=== PATIENT | female | born 1990 | race African-American/Black ===

== ENCOUNTER 2020-04-23 14:46 | Inpatient (IN) | payer MEDICAID ==
[~2020-04-23] VITALS: Ht 172.7 cm; Wt 115.3 kg
[2020-04-23 15:00] VITALS: BP 113/70
--- NOTE | 2020-04-23 15:12 | Emergency Room Report ---
History of Present Illness General Chief Complaint: Toothache Source: Patient Present Illness HPI 30-year-old female with history of asthma currently controlled here complaining of 2 days of left-sided facial pain and swelling. Reports that the feeling on the left upper been more lower felt 2 weeks ago. Patient is scared of needles and has severe anxiety and does not want to go to dentist. Patient started seeing facial swelling 2 days ago, took Advil however did not subside. Is able to open mouth however with limited range of motion. Complains of tightness in the left side of face. Denies any tingling numbness. Denies any ear pain, fever and chills, sore throat. Speaks in full sentences. Reports that she is capable of swallowing. Denies any blurry vision. Denies any chest pain, shortness of breath, headache or dizziness. Denies any facial trauma. After seeing elevated liver enzymes patient complains of several months of intermittent sharp right upper quadrant abdominal pain reports that she drinks alcohol daily basis abuse. Denies any IV drug use. Denies recent travel, abdominal trauma. Denies nausea vomiting. Allergies: Coded Allergies: MORPHINE (Verified Allergy, Unknown, 04/23/20) COVID-19 Screening Contact w/high risk pt: No Experienced COVID-19 symptoms?: No COVID-19 Testing performed BREAST TRIMMER: No Patient History Past Medical History: see triage record Past Surgical History: none Pertinent Family History: none Last Menstrual Period: 04/09/20 Now: No Immunizations: UTD Reviewed Nursing Documentation: PMH: Agreed; PSxH: Agreed Nursing Documentation-PMH Past Medical History: No History, Except For Hx Asthma: Yes - bronchitis Review of Systems All Other Systems: negative except mentioned in HPI Physical Exam Vital Signs Date Time Temp Pulse Resp B/P (MAP) Pulse Ox O2 Delivery O2 Flow Rate FiO2 04/23/20 14:53 97.9 89 17 113/70 (84) 98 Room Air Sp02 EP Interpretation: reviewed, normal General Appearance: no apparent distress, alert, GCS 15, non-toxic Head: normocephalic, atraumatic Eyes: bilateral eye normal inspection, bilateral eye PERRL ENT: hearing grossly normal, normal pharynx, no angioedema, normal voice Neck: full range of motion, supple/symm/no masses Respiratory: chest non-tender, lungs clear, normal breath sounds, no rhonchi, no retraction, speaking full sentences Cardiovascular #1: regular rate, rhythm, no edema, no murmur Gastrointestinal: normal bowel sounds, non tender, soft, non-distended, no guarding, no rebound Rectal: deferred Genitourinary: no CVA tenderness Musculoskeletal: back normal, tender - Left frontal maxillary, swelling - Left maxilla and mandible Neurologic: alert, motor strength/tone normal, oriented x3, sensory intact, responsive, speech normal Psychiatric: judgement/insight normal, memory normal, mood/affect normal, no suicidal/homicidal ideation Skin: no rash Lymphatic: no adenopathy Medical Decision Making PA Attestation All diagnosis and treatment plans were discussed and reviewed by my supervising physician Dr. Castaneda Diagnostic Impression: Primary Impression: Elevated LFTs Additional Impression: Periodontal abscess ER Course 30-year-old female with history of asthma currently controlled here complaining of 2 days of left-sided facial pain and swelling. Reports that the feeling on the left upper been more lower felt 2 weeks ago. Patient is scared of needles and has severe anxiety and does not want to go to dentist. Patient started seeing facial swelling 2 days ago, took Advil however did not subside. Is able to open mouth however with limited range of motion. Complains of tightness in the left side of face. Denies any tingling numbness. Denies any ear pain, fever and chills, sore throat. Speaks in full sentences. Reports that she is capable of swallowing. Denies any blurry vision. Denies any chest pain, shortness of breath, headache or dizziness. Denies any facial trauma. After seeing elevated liver enzymes patient complains of several months of intermittent sharp right upper quadrant abdominal pain reports that she drinks alcohol daily basis abuse. Denies any IV drug use. Denies recent travel, abdominal trauma. Denies nausea vomiting. Ddx considered but are not limited to : Cellulitis, peritonsillar abscess, superficial infection, abscess Vital signs: are WNL, pt. is afebrile H&PE are most consistent with: periodontal abscess, elevated liver enzymes ORDERS: CBC, CMP, UA, urine test, CT facial bones with contrast ED INTERVENTIONS: Xanax. Patient is very anxious, reports that she did not take her Xanax today. Toradol, clindamycin Patient was admitted with diagnosis of. periodontal abscess, elevated liver enzymes to Dr. Partida under supervision of : Leonel pt stable at time of admission CT/MRI/US Diagnostic Results CT/MRI/US Diagnostic Results #1: Imaging Test Ordered: CT facial bones with contrast Impression FINDINGS: Bones/joints: Visualized calvarium is unremarkable. Zygomatic arches are unremarkable. No acute fracture. Soft tissues: There is soft tissue swelling and haziness anterior to the left submandibular gland presumably related to are dental etiology. Orbits: Unremarkable. Submandibular/parotid glands: Parotid glands are unremarkable. Submandible glands are unremarkable. Sinuses: Mild to moderate chronic left maxillary sinusitis. Dental: Best seen on axial series 6 image 25 coronal image 18, there is suggestion of a 0.7 x 0.5 x 0.9 cm probable periodontal abscess collection. IMPRESSION: There is significant soft tissue swelling and stranding within the 17 is tissues at the left submandibular region. Moreover, within the deep soft tissues adjacent to the teeth, there is suggestion of a probable periodontal abscess collection involving one of the molars. CT/MRI/US Diagnostic Results #2: Imaging Test Ordered: CT abd pelvis with contrast Impression FINDINGS: Limitations: Limited evaluation due to motion artifact. Lung bases: Minimal subsegmental atelectasis posteriorly. Minimal scarring within the lingular region. Heart: Heart is normal in size. ABDOMEN: Liver: Diffuse fatty infiltration of the liver is noted. The liver and the spleen enhance uniformly. Gallbladder and bile ducts: See below. Pancreas: See below. Spleen: See above. Adrenals: The adrenal glands, the head, body, tail of the pancreas, and the gallbladder are unremarkable. Kidneys and ureters: Both kidneys are shown to excrete contrast bilaterally. 0.5 cm probable simple cyst midpole region of the left kidney. No follow-up is advised. No hydronephrosis. Stomach and bowel: Moderate quantity of stool. No evidence of bowel obstruction. No mucosal thickening. PELVIS: Appendix: The appendix is seen on axial image 64 and is unremarkable. Bladder: Bladder is underdistended appeared Reproductive: Mildly distended endometrial cavity which is fluid-filled. ABDOMEN and PELVIS: Intraperitoneal space: Unremarkable. No free air. No significant fluid collection. Bones/joints: Mild osteoarthritic changes about the sacroiliac joints. Alignment of the thoracolumbar spine is unremarkable. The sacrum and coccyx are unremarkable. No acute fracture. Soft tissues: Ischiorectal fat is clean. Best seen on series 4 image 65 within the anterior aspect of the lower right rectus abdominous muscle at the midline there is a 0.6 and your hypodensity, possibly focal area of acute hemorrhage Vasculature: Flow is demonstrated within the celiac, SMA, the renal arteries, and KALEN. No abdominal aortic aneurysm. Lymph nodes: No retroperitoneal lymphadenopathy. Other findings: A 1.7 cm Alexus's duct cyst left pudendal region. A 0.6 cm Alexus's duct cyst right pudendal region. IMPRESSION: 1. Small hiatal hernia. 2. Probable distal esophagitis. 3. Fatty infiltration of the liver. 4. Gallbladder is unremarkable. 5. No renal calculus or hydronephrosis. 6. The appendix is unremarkable. 7. Moderate quantity of stool without bowel obstruction. 8. 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 9. Possible focal area of acute hemorrhage within the medial aspect of the right rectus abdominis muscle best seen on series 4 image 65. Clinical correlation is advised. Last Vital Signs Date Time Temp Pulse Resp B/P (MAP) Pulse Ox O2 Delivery O2 Flow Rate FiO2 04/23/20 14:53 97.9 89 17 113/70 (84) 98 Room Air Disposition: ADMITTED INPATIENT Condition: Serious SahelimoghaMars mueller Apr 23, 2020 15:12
[2020-04-23] MEDS ORDERED: ALPRAZolam 0.5mg tab ORAL ONE (15:15)
[2020-04-23] MEDS ORDERED: Omnipaque-300 100ml vial INJ PRN ×2 (15:15→16:15)
[2020-04-23] MEDS ORDERED: Ketorolac 30mg Inj IV ONE (15:15)
[2020-04-23 15:35] LABS: APPEARANCE,URINE CLOUDY; BILIRUBIN, URINE 2+ (NEGATIVE); GLUCOSE, URINE (UA) NEGATIVE (NEGATIVE); KETONES,URINE 3+ (NEGATIVE); LEUKOCYTE ESTERASE ,URINE 3+ (NEGATIVE); NITRITE,URINE NEGATIVE (NEGATIVE); PH,URINE 5 (4.5-8.0); PROTEIN,URINE 2+ (NEGATIVE); UROBILINOGEN,URINE 12 MG/DL (0.0-1.0)
[2020-04-23 15:38] LABS: COLOR,URINE YELLOW
[2020-04-23 15:42] LABS: BASOPHILS % (AUTO) 0.9 % (0.0-2.0); EOSINOPHILS % (AUTO) 4.2 % (0.0-3.0); HEMATOCRIT 40.3 % (37.0-47.0); HEMOGLOBIN 13.6 G/DL (12.0-16.0); LYMPHOCYTES % (AUTO) 13.3 % (20.0-45.0); MEAN CORPUSCULAR VOLUME 94 FL (80-99); MONOCYTES % (AUTO) 4.8 % (1.0-10.0); NEUTROPHILS % (AUTO) 76.8 % (45.0-75.0); PLATELET COUNT 230 K/UL (150-450); RED BLOOD COUNT 4.29 M/UL (4.20-5.40); RED CELL DISTRIBUTION WIDTH 14.9 % (11.6-14.8); WHITE BLOOD COUNT 8.4 K/UL (4.8-10.8)
[2020-04-23 15:46] LABS: ANION GAP 11 mmol/L (5-15); BLOOD UREA NITROGEN 12 mg/dL (7-18); CARBON DIOXIDE 27 MMOL/L (21-32); CHLORIDE 99 MMOL/L (98-107); CREATININE 1.1 MG/DL (0.55-1.30); POTASSIUM 3.6 MMOL/L (3.5-5.1); SODIUM 136 MMOL/L (136-145)
[2020-04-23 15:58] LABS: ALANINE AMINOTRANSFERASE 2265 U/L (12-78); ALBUMIN/GLOBULIN RATIO 0.9 (1.0-2.7); ALKALINE PHOSPHATASE 98 U/L (46-116); ASPARTATE AMINO TRANSFERASE 2499 U/L (15-37); BILIRUBIN,TOTAL 2.2 MG/DL (0.2-1.0)
[2020-04-23 16:00] LABS: BILIRUBIN,DIRECT 0.8 MG/DL (0.0-0.3)
--- NOTE | 2020-04-23 16:46 | Diagnostic Imaging Report ---
EXAM: CT Maxillofacial Without and With Intravenous Contrast CLINICAL HISTORY: ABSCESS TECHNIQUE: Axial computed tomography images of the face without and with intravenous contrast. CTDI is 158.7 mGy and DLP is 413.00 mGy-cm. One or more of the following dose reduction techniques were used: automated exposure control, adjustment of the mA and/or kV according to patient size, use of iterative reconstruction technique. COMPARISON: None. FINDINGS: Bones/joints: Visualized calvarium is unremarkable. Zygomatic arches are unremarkable. No acute fracture. Soft tissues: There is soft tissue swelling and haziness anterior to the left submandibular gland presumably related to are dental etiology. Orbits: Unremarkable. Submandibular/parotid glands: Parotid glands are unremarkable. Submandible glands are unremarkable. Sinuses: Mild to moderate chronic left maxillary sinusitis. Dental: Best seen on axial series 6 image 25 coronal image 18, there is suggestion of a 0.7 x 0.5 x 0.9 cm probable periodontal abscess collection. IMPRESSION: There is significant soft tissue swelling and stranding within the 17 is tissues at the left submandibular region. Moreover, within the deep soft tissues adjacent to the teeth, there is suggestion of a probable periodontal abscess collection involving one of the molars.
[2020-04-23 16:50] LABS: INR 1.2 (0.9-1.1)
--- NOTE | 2020-04-23 16:59 | Diagnostic Imaging Report ---
EXAM: CT Abdomen and Pelvis With Intravenous Contrast CLINICAL HISTORY: Abdominal pain. Abnormal liver enzyme values. TECHNIQUE: Axial computed tomography images of the abdomen and pelvis with intravenous contrast. CTDI is 13. mGy and DLP is 763.5 mGy-cm. One or more of the following dose reduction techniques were used: automated exposure control, adjustment of the mA and/or kV according to patient size, use of iterative reconstruction technique. COMPARISON: No previous studies. FINDINGS: Limitations: Limited evaluation due to motion artifact. Lung bases: Minimal subsegmental atelectasis posteriorly. Minimal scarring within the lingular region. Heart: Heart is normal in size. ABDOMEN: Liver: Diffuse fatty infiltration of the liver is noted. The liver and the spleen enhance uniformly. Gallbladder and bile ducts: See below. Pancreas: See below. Spleen: See above. Adrenals: The adrenal glands, the head, body, tail of the pancreas, and the gallbladder are unremarkable. Kidneys and ureters: Both kidneys are shown to excrete contrast bilaterally. 0.5 cm probable simple cyst midpole region of the left kidney. No follow-up is advised. No hydronephrosis. Stomach and bowel: Moderate quantity of stool. No evidence of bowel obstruction. No mucosal thickening. PELVIS: Appendix: The appendix is seen on axial image 64 and is unremarkable. Bladder: Bladder is underdistended appeared Reproductive: Mildly distended endometrial cavity which is fluid- filled. ABDOMEN and PELVIS: Intraperitoneal space: Unremarkable. No free air. No significant fluid collection. Bones/joints: Mild osteoarthritic changes about the sacroiliac joints. Alignment of the thoracolumbar spine is unremarkable. The sacrum and coccyx are unremarkable. No acute fracture. Soft tissues: Ischiorectal fat is clean. Best seen on series 4 image 65 within the anterior aspect of the lower right rectus abdominous muscle at the midline there is a 0.6 and your hypodensity, possibly focal area of acute hemorrhage Vasculature: Flow is demonstrated within the celiac, SMA, the renal arteries, and KALEN. No abdominal aortic aneurysm. Lymph nodes: No retroperitoneal lymphadenopathy. Other findings: A 1.7 cm Alexus's duct cyst left pudendal region. A 0.6 cm Alexus's duct cyst right pudendal region. IMPRESSION: 1. Small hiatal hernia. 2. Probable distal esophagitis. 3. Fatty infiltration of the liver. 4. Gallbladder is unremarkable. 5. No renal calculus or hydronephrosis. 6. The appendix is unremarkable. 7. Moderate quantity of stool without bowel obstruction. 8. 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 9. Possible focal area of acute hemorrhage within the medial aspect of the right rectus abdominis muscle best seen on series 4 image 65. Clinical correlation is advised. <MYCVCSECTION> Communications: 04/23/20 17:06 Call Doctor Regarding Above results, called Carlita LANE on 04/23 17:07 (-07:00)
[2020-04-23] MEDS ORDERED: Acetaminophen 650 MG SUPP RECTAL PRN (20:00)
[2020-04-23 20:26] VITALS: BP 105/69
[2020-04-23] MEDS ORDERED: HYDROmorphone 1mg/ml Carpuject IVP PRN (22:15)
[2020-04-24] VITALS: BP 126/80
[2020-04-24] MEDS ORDERED: Piperacillin/Tazobactam 3.375 GM in NS 110 ML IVPB SCH ×2
[2020-04-24 04:00] VITALS: BP 119/75
[2020-04-24 05:58] LABS: HEMOGLOBIN 12.8 G/DL (12.0-16.0); MEAN CORPUSCULAR VOLUME 93 FL (80-99); PLATELET COUNT 232 K/UL (150-450); RED CELL DISTRIBUTION WIDTH 13.9 % (11.6-14.8); WHITE BLOOD COUNT 8.9 K/UL (4.8-10.8)
[2020-04-24 06:03] LABS: INR 1.2 (0.9-1.1)
[2020-04-24 06:14] LABS: ALANINE AMINOTRANSFERASE 1738 U/L (12-78); ALBUMIN 3.1 G/DL (3.4-5.0); ALBUMIN/GLOBULIN RATIO 0.8 (1.0-2.7); ALKALINE PHOSPHATASE 98 U/L (46-116); AMYLASE 29 U/L (25-115); ANION GAP 7 mmol/L (5-15); ASPARTATE AMINO TRANSFERASE 1106 U/L (15-37); BILIRUBIN,DIRECT 0.5 MG/DL (0.0-0.3); BILIRUBIN,TOTAL 1.3 MG/DL (0.2-1.0); BLOOD UREA NITROGEN 8 mg/dL (7-18); CALCIUM 8.8 MG/DL (8.5-10.1); CARBON DIOXIDE 28 MMOL/L (21-32); CHLORIDE 100 MMOL/L (98-107); SODIUM 134 MMOL/L (136-145)
[2020-04-24] MEDS ORDERED: Tums 500mg ORAL PRN (07:30)
[2020-04-24 08:00] VITALS: BP 139/86
[2020-04-24] MEDS: Pantoprazole Inj IVP SCH ×2 (09:09→09:17)
[2020-04-24] MEDS ORDERED: LORazepam 1mg tab ORAL PRN (09:51)
[2020-04-24] MEDS ORDERED: Ampicillin/Sulbactam Sod 3 GM in NS 110 ML IVPB SCH (10:30)
[2020-04-24 12:00] VITALS: BP 109/69
--- NOTE | 2020-04-24 12:29 | History and Physical Report ---
DATE OF ADMISSION: 04/23/2020 TIME SEEN: 8 a.m. CONSULTANTS: 1. Lamin Louise MD. 2. Alfonzo Mclaughlin MD. 3. Johann Brown MD. CHIEF COMPLAINT: Left facial cellulitis, dental abscess, transaminitis. BRIEF HISTORY: The patient is a 30-year-old female, who lives at home, presented with above-mentioned diagnoses, currently calm in bed, no . No chest pain. No shortness of breath. No no nausea, vomiting, or diarrhea. PAST MEDICAL HISTORY: Asthma. PAST SURGICAL HISTORY: . MEDICATIONS: Metronidazole, pantoprazole, Zosyn, Zofran, hydromorphone, Tylenol, dexamethasone. ALLERGIES: Morphine. SOCIAL HISTORY: Positive smoke. Positive alcohol. Positive marijuana use. OBJECTIVE: GENERAL: Calm in bed, oriented x3, no acute distress. VITAL SIGNS: Temperature is 98 degrees, pulse 73, respiratory rate 16, blood pressure 119/75. CARDIOVASCULAR: No murmurs. LUNGS: Distant and clear. ABDOMEN: Bowel sound positive. Nontender. Nondistended. EXTREMITIES: No cyanosis, clubbing, or edema. SKIN: Left facial area slightly swollen, no increased warmth. NEUROLOGIC: The patient moves all extremities, slightly weak. LABORATORY AND DIAGNOSTIC DATA: Labs at this time show CBC is normal. BMP shows sodium 134, glucose 121. AST 1106, ALT 1738, albumin 3.1. Lipase 58. INR is 1.2. Urine tox positive benzo, cocaine, and marijuana. Urinalysis show 3+ leukocyte esterase. ASSESSMENT: 1. Left facial cellulitis. 2. Dental abscess. 3. UTI. 4. Elevated LFTs. 5. Alcohol abuse. 6. Drug abuse. PLAN: 1. Detox, dietary followup. 2. Antibiotics per Infectious Diseases. 3. Wound care. 4. IV fluids. 5. Pain control. 6. Dietary evaluation. 7. CBC and BMP in the morning. Esdras Partida D.O. DR: Grecia JOB#: [id number] CC:
--- NOTE | 2020-04-24 12:49 | Consultation ---
History of Present Illness General Date patient seen: Apr 24, 2020 Reason for Hospitalization: Toothache Present Illness HPI 30-year-old female with history of etoh and drug abuse presented with toothache for some time now and pain was noted to have abnormal labs. Reports that the feeling on the left upper been more lower felt 2 weeks ago. Patient is scared of needles and has severe anxiety and does not want to go to dentist. Patient started seeing facial swelling 2 days ago, took Advil however did not subside. Is able to open mouth however with limited range of motion. Complains of tightness in the left side of face. Denies any tingling numbness. Denies any ear pain, fever and chills, sore throat. Speaks in full sentences. Reports that she is capable of swallowing. Denies any blurry vision. Denies any chest pain, shortness of breath, headache or dizziness. Denies any facial trauma. After seeing elevated liver enzymes patient complains of several months of intermittent sharp right upper quadrant abdominal pain reports that she drinks alcohol daily basis abuse. States she has been taking advil and tylenol at home with alcohol heavy to improve pain. Allergies: Coded Allergies: MORPHINE (Verified Allergy, Unknown, 04/23/20) COVID-19 Screening Contact w/high risk pt: No Experienced COVID-19 symptoms?: No Patient History History Provided By: Patient, Medical Record, PMD Healthcare decision maker Resuscitation status Advanced Directive on File Past Medical/Surgical History Past Medical/Surgical History: (1) Periodontal abscess (2) Elevated LFTs Review of Systems Review of Symptoms General ROS: no weight loss or fever Psychological ROS: no depression or mood changes, no memory loss Ophthalmic ROS: no visual changes or eye irritation ENT ROS: no nasal congestion, hearing loss, dizziness Allergy and Immunology ROS: no allergic symptoms or urticaria Hematological and Lymphatic ROS: no swollen glands, unusual bleeding or bruising Endocrine ROS: no polyuria, polydipsia, weight changes, temperature intolerance Respiratory ROS: no cough, shortness of breath, or wheezing Cardiovascular ROS: no chest pain or dyspnea on exertion Gastrointestinal ROS: denies abdominal pain, bright red blood in stool. Musculoskeletal ROS: no myalgias or arthralgias Neurological ROS: no TIA or stroke symptoms Dermatological ROS: no new or changing skin lesions, rashes or pruritis Physical Exam Physical Exam General appearance: alert, cooperative, no distress, appears stated age Head: Normocephalic, without obvious abnormality, atraumatic Eyes: conjunctivae/corneas clear. PERRL, EOM's intact. Fundi benign Throat: Lips, mucosa, and tongue normal. left gum has historic scar. Neck: supple, symmetrical, trachea midline, no adenopathy, thyroid: not enlarged, symmetric, no tenderness/mass/nodules, no carotid bruit and no JVD Lungs: clear to auscultation bilaterally Heart: regular rate and rhythm, S1, S2 normal, no murmur, click, rub or gallop Abdomen: soft, non-tender. Bowel sounds normal. No masses, no organomegaly Extremities: extremities normal, atraumatic, no cyanosis or edema Pulses: 2+ and symmetric Skin: Skin color, texture, turgor normal. No rashes or lesions Neurologic: Grossly normal Last 24 Hour Vital Signs Date Time Temp Pulse Resp B/P (MAP) Pulse Ox O2 Delivery O2 Flow Rate FiO2 04/24/20 08:00 98.2 86 16 139/86 (103) 99 04/24/20 04:00 98.0 73 16 119/75 (90) 97 04/24/20 00:00 97.6 68 16 126/80 (95) 100 04/23/20 23:52 Room Air 04/23/20 20:45 98.8 75 16 105/69 96 Room Air 04/23/20 20:38 98.8 04/23/20 20:26 98.8 75 16 105/69 96 Room Air 04/23/20 15:53 97.8 04/23/20 15:00 97.9 17 113/70 98 Room Air 04/23/20 14:53 97.9 89 17 113/70 (84) 98 Room Air Intake and Output 04/23/20 04/24/20 19:00 07:00 Intake Total 1235.0 ml Balance 1235.0 ml Intake IV Total 1235.0 ml # Voids 1 Laboratory Tests Test 04/23/20 15:15 04/23/20 16:10 04/24/20 05:10 White Blood Count 8.4 K/UL (4.8-10.8) 8.9 K/UL (4.8-10.8) Red Blood Count 4.29 M/UL (4.20-5.40) 4.10 M/UL (4.20-5.40) L Hemoglobin 13.6 G/DL (12.0-16.0) 12.8 G/DL (12.0-16.0) Hematocrit 40.3 % (37.0-47.0) 38.0 % (37.0-47.0) Mean Corpuscular Volume 94 FL (80-99) 93 FL (80-99) Mean Corpuscular Hemoglobin 31.8 PG (27.0-31.0) H 31.1 PG (27.0-31.0) H Mean Corpuscular Hemoglobin Concent 33.8 G/DL (32.0-36.0) 33.6 G/DL (32.0-36.0) Red Cell Distribution Width 14.9 % (11.6-14.8) H 13.9 % (11.6-14.8) Platelet Count 230 K/UL (150-450) 232 K/UL (150-450) Mean Platelet Volume 9.0 FL (6.5-10.1) 8.7 FL (6.5-10.1) Neutrophils (%) (Auto) 76.8 % (45.0-75.0) H % (45.0-75.0) Lymphocytes (%) (Auto) 13.3 % (20.0-45.0) L % (20.0-45.0) Monocytes (%) (Auto) 4.8 % (1.0-10.0) % (1.0-10.0) Eosinophils (%) (Auto) 4.2 % (0.0-3.0) H % (0.0-3.0) Basophils (%) (Auto) 0.9 % (0.0-2.0) % (0.0-2.0) Prothrombin Time 13.1 SEC (9.30-11.50) H 12.8 SEC (9.30-11.50) H Prothromb Time International Ratio 1.2 (0.9-1.1) H 1.2 (0.9-1.1) H Activated Partial Thromboplast Time 29 SEC (23-33) 29 SEC (23-33) Urine Color Yellow Urine Appearance Cloudy Urine pH 5 (4.5-8.0) Urine Specific [place] 1.025 (1.005-1.035) Urine Protein 2+ (NEGATIVE) H Urine Glucose (UA) Negative (NEGATIVE) Urine Ketones 3+ (NEGATIVE) H Urine Blood 2+ (NEGATIVE) H Urine Nitrite Negative (NEGATIVE) Urine Bilirubin 2+ (NEGATIVE) H Urine Ictotest Negative (NEGATIVE) Urine Urobilinogen 12 MG/DL (0.0-1.0) H Urine Leukocyte Esterase 3+ (NEGATIVE) H Urine RBC 2-4 /HPF (0 - 2) H Urine WBC 15-20 /HPF (0 - 2) H Urine Squamous Epithelial Cells Many /LPF (NONE/OCC) H Urine Calcium Oxalate Crystals Many /LPF (NONE) Urine Amorphous Sediment Moderate /LPF (NONE) H Urine Bacteria Moderate /HPF (NONE) H Urine HCG, Qualitative Negative (NEGATIVE) Sodium Level 136 MMOL/L (136-145) 134 MMOL/L (136-145) L Potassium Level 3.6 MMOL/L (3.5-5.1) 4.0 MMOL/L (3.5-5.1) Chloride Level 99 MMOL/L (98-107) 100 MMOL/L (98-107) Carbon Dioxide Level 27 MMOL/L (21-32) 28 MMOL/L (21-32) Anion Gap 11 mmol/L (5-15) 7 mmol/L (5-15) Blood Urea Nitrogen 12 mg/dL (7-18) 8 mg/dL (7-18) Creatinine 1.1 MG/DL (0.55-1.30) 1.0 MG/DL (0.55-1.30) Estimat Glomerular Filtration Rate > 60 mL/min (>60) > 60 mL/min (>60) Glucose Level 101 MG/DL (74-106) 121 MG/DL (74-106) H Calcium Level 9.0 MG/DL (8.5-10.1) 8.8 MG/DL (8.5-10.1) Total Bilirubin 2.2 MG/DL (0.2-1.0) H 1.3 MG/DL (0.2-1.0) H Direct Bilirubin 0.8 MG/DL (0.0-0.3) H 0.5 MG/DL (0.0-0.3) H Aspartate Amino Transf (AST/SGOT) 2499 U/L (15-37) H 1106 U/L (15-37) H Alanine Aminotransferase (ALT/SGPT) 2265 U/L (12-78) H 1738 U/L (12-78) H Alkaline Phosphatase 98 U/L (46-116) 98 U/L (46-116) Total Protein 8.3 G/DL (6.4-8.2) H 7.1 G/DL (6.4-8.2) Albumin 4.0 G/DL (3.4-5.0) 3.1 G/DL (3.4-5.0) L Globulin 4.3 g/dL 4.0 g/dL Albumin/Globulin Ratio 0.9 (1.0-2.7) L 0.8 (1.0-2.7) L Lipase 69 U/L (73-393) L 58 U/L (73-393) L Urine Opiates Screen Negative (NEGATIVE) Acetaminophen Level < 2 MCG/ML (10-30) L Urine Barbiturates Screen Negative (NEGATIVE) Phencyclidine (PCP) Screen Negative (NEGATIVE) Urine Amphetamines Screen Negative (NEGATIVE) Urine Benzodiazepines Screen Positive (NEGATIVE) H Urine Cocaine Screen Positive (NEGATIVE) H Urine Marijuana (THC) Screen Positive (NEGATIVE) H Serum Alcohol < 3 mg/dL Hepatitis A IgM Antibody Pending Hepatitis B Surface Antigen Pending Hepatitis B Core IgM Antibody Pending Hepatitis C Antibody Pending Differential Total Cells Counted 100 Neutrophils % (Manual) 88 % (45-75) H Lymphocytes % (Manual) 9 % (20-45) L Monocytes % (Manual) 2 % (1-10) Eosinophils % (Manual) 0 % (0-3) Basophils % (Manual) 1 % (0-2) Band Neutrophils 0 % (0-8) Platelet Estimate Adequate Platelet Morphology Normal Red Blood Cell Morphology Normal Amylase Level 29 U/L (25-115) Hepatitis B Core Total Antibody Pending Microbiology Date/Time Source Procedure Growth Status 04/23/20 15:15 Urine,Clean Catch Urine Culture - Preliminary NO GROWTH Resulted Height (Feet): 5 Height (Inches): 8.00 Weight (Pounds): 240 Medications Current Medications Medications (Trade) Dose Ordered Sig/Britton Route PRN Reason Start Time Stop Time Status Last Admin Dose Admin Acetaminophen (Tylenol) 650 mg PRN PRN RECTAL Mild Pain (Pain Scale 1-3) 04/23/20 20:00 Ampicillin Sodium/ Sulbactam Sodium 3 gm/Sodium Chloride 110 ml @ 220 mls/hr Q6HR IVPB 04/24/20 10:30 05/01/20 10:29 Calcium Carbonate (Tums) 500 mg Q3H PRN ORAL Abdominal cramps 04/24/20 07:30 07/23/20 07:29 Fluoxetine HCl (PROzac) 20 mg DAILY ORAL 04/25/20 09:00 05/25/20 08:59 Fluoxetine HCl (PROzac) 20 mg ONCE ORAL 04/24/20 11:00 04/24/20 13:00 Hydromorphone HCl (Dilaudid) 1 mg Q4H PRN IVP For Pain 04/23/20 22:15 04/30/20 22:14 Ibuprofen (Motrin) 600 mg PRN PRN ORAL Mild Pain (Pain Scale 1-3) 04/23/20 20:00 Iohexol (OMNIPAQUE-300 100ml) NOW PRN INJ Radiology Procedure 04/23/20 15:15 04/25/20 15:02 Iohexol (OMNIPAQUE-300 100ml) 100 ml NOW PRN INJ Radiology Procedure 04/23/20 16:15 04/25/20 16:09 Lorazepam (Ativan) 2 mg Q6H PRN ORAL For Anxiety 04/24/20 09:51 05/01/20 09:50 Ondansetron HCl (Zofran) 4 mg Q4H PRN IVP Nausea & Vomiting 04/23/20 22:15 05/23/20 22:14 Pantoprazole (Protonix) 40 mg DAILY IVP 04/24/20 09:00 05/24/20 08:59 04/24/20 09:17 Sodium Chloride 1,000 ml @ 125 mls/hr Q8H IV 04/23/20 22:15 05/23/20 22:14 04/24/20 09:31 Assessment/Plan Problem List: (1) Periodontal abscess Assessment & Plan: small <1cm abx as per Id outpatient dental f/u Bones/joints: Visualized calvarium is unremarkable. Zygomatic arches are unremarkable. No acute fracture. Soft tissues: There is soft tissue swelling and haziness anterior to the left submandibular gland presumably related to are dental etiology. Orbits: Unremarkable. Submandibular/parotid glands: Parotid glands are unremarkable. Submandible glands are unremarkable. Sinuses: Mild to moderate chronic left maxillary sinusitis. Dental: Best seen on axial series 6 image 25 coronal image 18, there is suggestion of a 0.7 x 0.5 x 0.9 cm probable periodontal abscess collection. IMPRESSION: There is significant soft tissue swelling and stranding within the 17 is tissues at the left submandibular region. Moreover, within the deep soft tissues adjacent to the teeth, there is suggestion of a probable periodontal abscess collection involving one of the molars. ICD Codes: K05.219 - Aggressive periodontitis, localized, unspecified severity SNOMED: 42193308, 529275930 (2) Elevated LFTs Assessment & Plan: likely from Etoh abuse discussed cessation patient understands discussed medication use and adverse effects okay for diet trend labs ICD Codes: R79.89 - Other specified abnormal findings of blood chemistry SNOMED: 805609756, 536107879 (3) Hematoma of rectus sheath Assessment & Plan: denies trauma on exam not palpable given size will monitor trend h/h Liver: Diffuse fatty infiltration of the liver is noted. The liver and the spleen enhance uniformly. Gallbladder and bile ducts: See below. Pancreas: See below. Spleen: See above. Adrenals: The adrenal glands, the head, body, tail of the pancreas, and the gallbladder are unremarkable. Kidneys and ureters: Both kidneys are shown to excrete contrast bilaterally. 0.5 cm probable simple cyst midpole region of the left kidney. No follow-up is advised. No hydronephrosis. Stomach and bowel: Moderate quantity of stool. No evidence of bowel obstruction. No mucosal thickening. PELVIS: Appendix: The appendix is seen on axial image 64 and is unremarkable. Bladder: Bladder is underdistended appeared Reproductive: Mildly distended endometrial cavity which is fluid- filled. ABDOMEN and PELVIS: Intraperitoneal space: Unremarkable. No free air. No significant fluid collection. Bones/joints: Mild osteoarthritic changes about the sacroiliac joints. Alignment of the thoracolumbar spine is unremarkable. The sacrum and coccyx are unremarkable. No acute fracture. Soft tissues: Ischiorectal fat is clean. Best seen on series 4 image 65 within the anterior aspect of the lower right rectus abdominous muscle at the midline there is a 0.6 and your hypodensity, possibly focal area of acute hemorrhage Vasculature: Flow is demonstrated within the celiac, SMA, the renal arteries, and KALEN. No abdominal aortic aneurysm. Lymph nodes: No retroperitoneal lymphadenopathy. Other findings: A 1.7 cm Alexus's duct cyst left pudendal region. A 0.6 cm Alexus's duct cyst right pudendal region. IMPRESSION: 1. Small hiatal hernia. 2. Probable distal esophagitis. 3. Fatty infiltration of the liver. 4. Gallbladder is unremarkable. 5. No renal calculus or hydronephrosis. 6. The appendix is unremarkable. 7. Moderate quantity of stool without bowel obstruction. 8. 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 9. Possible focal area of acute hemorrhage within the medial aspect of the right rectus abdominis muscle best seen on series 4 image 65. ICD Codes: S30.1XXA - Contusion of abdominal wall, initial encounter SNOMED: 579975288 Alfonzo Mclaughlin Apr 24, 2020 12:49
[2020-04-24] MEDS: Ampicillin/Sulbactam Sod 3 GM in NS 110 ML IVPB SCH ×2 (13:19→18:55)
[2020-04-24] MEDS ORDERED: Tubing IV Secondary IV ONE (15:31)
[2020-04-24 16:00] VITALS: BP 110/71
[2020-04-24 20:00] VITALS: BP 107/63
[2020-04-25] VITALS: BP 105/57
[2020-04-25] MEDS: Ampicillin/Sulbactam Sod 3 GM in NS 110 ML IVPB SCH ×4 (00:12→18:19)
[2020-04-25 04:00] VITALS: BP 110/60
[2020-04-25 06:03] LABS: BASOPHILS % (AUTO) 0.5 % (0.0-2.0); EOSINOPHILS % (AUTO) 0.3 % (0.0-3.0); HEMATOCRIT 33.4 % (37.0-47.0); LYMPHOCYTES % (AUTO) 14.1 % (20.0-45.0); MEAN CORPUSCULAR VOLUME 93 FL (80-99); MONOCYTES % (AUTO) 6.6 % (1.0-10.0); NEUTROPHILS % (AUTO) 78.4 % (45.0-75.0); PLATELET COUNT 211 K/UL (150-450); RED BLOOD COUNT 3.59 M/UL (4.20-5.40); RED CELL DISTRIBUTION WIDTH 14.6 % (11.6-14.8); WHITE BLOOD COUNT 8.7 K/UL (4.8-10.8)
[2020-04-25 06:05] LABS: INR 1.1 (0.9-1.1)
[2020-04-25 06:08] LABS: BLOOD UREA NITROGEN 3 mg/dL (7-18); CALCIUM 8.2 MG/DL (8.5-10.1); CARBON DIOXIDE 28 MMOL/L (21-32); CHLORIDE 104 MMOL/L (98-107); POTASSIUM 3.6 MMOL/L (3.5-5.1); SODIUM 136 MMOL/L (136-145)
[2020-04-25 08:00] VITALS: BP 113/67
--- NOTE | 2020-04-25 08:40 | General Progress Note ---
Assessment/Plan Problem List: (1) UTI (urinary tract infection) ICD Codes: N39.0 - Urinary tract infection, site not specified SNOMED: 23286706 (2) Facial cellulitis ICD Codes: L03.211 - Cellulitis of face SNOMED: 982938233 (3) Periodontal abscess ICD Codes: K05.219 - Aggressive periodontitis, localized, unspecified severity SNOMED: 02813000, 826911069 (4) Elevated LFTs ICD Codes: R79.89 - Other specified abnormal findings of blood chemistry SNOMED: 255866746, 986710550 Status: stable, progressing Assessment/Plan: diet abx pain control cbc bmp am Subjective Constitutional: Reports: weakness Allergies: Coded Allergies: MORPHINE (Verified Allergy, Unknown, 04/23/20) All Systems: reviewed and negative except above Subjective calm in bed Objective Last 24 Hour Vital Signs Date Time Temp Pulse Resp B/P (MAP) Pulse Ox O2 Delivery O2 Flow Rate FiO2 04/25/20 04:00 97.9 66 20 110/60 (77) 95 04/25/20 00:00 98.2 62 18 105/57 (73) 95 04/24/20 20:34 Room Air 04/24/20 20:00 97.4 70 18 107/63 (78) 97 04/24/20 16:00 97.8 64 16 110/71 (84) 97 04/24/20 12:00 98.0 79 16 109/69 (82) 98 04/24/20 09:00 Room Air Intake and Output 04/24/20 04/25/20 19:00 07:00 Intake Total 1600 ml 1960 ml Balance 1600 ml 1960 ml Intake Oral 600 ml 710 ml IV Total 1000 ml 1250 ml # Voids 2 2 Laboratory Tests 04/25/20 05:10: White Blood Count 8.7, Red Blood Count 3.59L, Hemoglobin 11.0L, Hematocrit 33.4L , Mean Corpuscular Volume 93, Mean Corpuscular Hemoglobin 30.6, Mean Corpuscular Hemoglobin Concent 32.9, Red Cell Distribution Width 14.6, Platelet Count 211, Mean Platelet Volume 8.4, Neutrophils (%) (Auto) 78.4H, Lymphocytes ( %) (Auto) 14.1L, Monocytes (%) (Auto) 6.6, Eosinophils (%) (Auto) 0.3, Basophils (%) (Auto) 0.5, Prothrombin Time 11.9H, Prothromb Time International Ratio 1.1, Activated Partial Thromboplast Time 28, Sodium Level 136, Potassium Level 3.6, Chloride Level 104, Carbon Dioxide Level 28, Blood Urea Nitrogen 3L, Creatinine 1.0, Estimat Glomerular Filtration Rate > 60, Glucose Level 129H, Calcium Level 8.2L Height (Feet): 5 Height (Inches): 8.00 Weight (Pounds): 240 General Appearance: alert EENT: normal ENT inspection Neck: normal alignment Cardiovascular: normal peripheral pulses, normal rate, regular rhythm Respiratory/Chest: chest wall non-tender, lungs clear, normal breath sounds Abdomen: normal bowel sounds, non tender, soft Extremities: normal inspection Edema: no edema noted Arm (L), no edema noted Arm (R), no edema noted Leg (L), no edema noted Leg (R), no edema noted Pedal (L), no edema noted Pedal (R), no edema noted Generalized Neurologic: responsive, motor weakness Skin: normal pigmentation, warm/dry Objective sl left facial swelling Esdras Partida DO Apr 25, 2020 08:40
[2020-04-25] MEDS: Pantoprazole Inj IVP SCH (08:41)
--- NOTE | 2020-04-25 08:41 | Consultation ---
History of Present Illness General Date patient seen: Apr 25, 2020 Time patient seen: 08:30 - am Chief Complaint: Back pain Referring physician: Gilma Reason for Consultation: Pain Management Present Illness HPI This is a 30 y/o female admitted under the care of Dr. Partida due to elevated LFTs. She has c/o chronic LBP for the past 5 years which is off/on rating it a 6 /10 and radiates to b/l LE. We were consulted so patient would have adequate pain control while here in the hospital. Has been started on Dilaudid 0.5mg IV Q4H PRN which as allowed her to tolerate the pain. Allergies: Coded Allergies: MORPHINE (Verified Allergy, Unknown, 04/23/20) Medication History Medications Narrative MEDICATIONS: Metronidazole, pantoprazole, Zosyn, Zofran, hydromorphone, Tylenol, dexamethasone. SOCIAL HISTORY: Positive smoke. Positive alcohol. Positive marijuana use. Patient History Healthcare decision maker Resuscitation status Advanced Directive on File Patient History Narrative PAST MEDICAL HISTORY: Asthma. PAST SURGICAL HISTORY: . Past Medical/Surgical History Past Medical/Surgical History: (1) Periodontal abscess (2) UTI (urinary tract infection) Social History Social History: (1) Cocaine abuse Review of Systems ROS Narrative General ROS: no weight loss or fever Psychological ROS: no depression or mood changes, no memory loss Ophthalmic ROS: no visual changes or eye irritation ENT ROS: no nasal congestion, hearing loss, dizziness Allergy and Immunology ROS: no allergic symptoms or urticaria Hematological and Lymphatic ROS: no swollen glands, unusual bleeding or bruising Endocrine ROS: no polyuria, polydipsia, weight changes, temperature intolerance Respiratory ROS: no cough, shortness of breath, or wheezing Cardiovascular ROS: no chest pain or dyspnea on exertion Gastrointestinal ROS: denies abdominal pain, bright red blood in stool. Musculoskeletal ROS: no myalgias or arthralgias Neurological ROS: no TIA or stroke symptoms Dermatological ROS: no new or changing skin lesions, rashes or pruritis Physical Exam Physical Exam Narrative General appearance: alert, cooperative, no distress, appears stated age Head: Normocephalic, without obvious abnormality, atraumatic Eyes: conjunctivae/corneas clear. PERRL, EOM's intact. Fundi benign Throat: Lips, mucosa, and tongue normal. left gum has historic scar. Neck: supple, symmetrical, trachea midline, no adenopathy, thyroid: not enlarged, symmetric, no tenderness/mass/nodules, no carotid bruit and no JVD Lungs: clear to auscultation bilaterally Heart: regular rate and rhythm, S1, S2 normal, no murmur, click, rub or gallop Abdomen: soft, non-tender. Bowel sounds normal. No masses, no organomegaly Extremities: extremities normal, atraumatic, no cyanosis or edema Pulses: 2+ and symmetric Skin: Skin color, texture, turgor normal. No rashes or lesions Neurologic: Grossly normal Last 24 Hour Vital Signs Date Time Temp Pulse Resp B/P (MAP) Pulse Ox O2 Delivery O2 Flow Rate FiO2 04/25/20 08:00 98.3 70 18 113/67 (82) 99 04/25/20 04:00 97.9 66 20 110/60 (77) 95 04/25/20 00:00 98.2 62 18 105/57 (73) 95 04/24/20 20:34 Room Air 04/24/20 20:00 97.4 70 18 107/63 (78) 97 04/24/20 16:00 97.8 64 16 110/71 (84) 97 04/24/20 12:00 98.0 79 16 109/69 (82) 98 04/24/20 09:00 Room Air Intake and Output 04/24/20 04/25/20 19:00 07:00 Intake Total 1600 ml 1960 ml Balance 1600 ml 1960 ml Intake Oral 600 ml 710 ml IV Total 1000 ml 1250 ml # Voids 2 2 Laboratory Tests Test 04/25/20 05:10 White Blood Count 8.7 K/UL (4.8-10.8) Red Blood Count 3.59 M/UL (4.20-5.40) L Hemoglobin 11.0 G/DL (12.0-16.0) L Hematocrit 33.4 % (37.0-47.0) L Mean Corpuscular Volume 93 FL (80-99) Mean Corpuscular Hemoglobin 30.6 PG (27.0-31.0) Mean Corpuscular Hemoglobin Concent 32.9 G/DL (32.0-36.0) Red Cell Distribution Width 14.6 % (11.6-14.8) Platelet Count 211 K/UL (150-450) Mean Platelet Volume 8.4 FL (6.5-10.1) Neutrophils (%) (Auto) 78.4 % (45.0-75.0) H Lymphocytes (%) (Auto) 14.1 % (20.0-45.0) L Monocytes (%) (Auto) 6.6 % (1.0-10.0) Eosinophils (%) (Auto) 0.3 % (0.0-3.0) Basophils (%) (Auto) 0.5 % (0.0-2.0) Prothrombin Time 11.9 SEC (9.30-11.50) H Prothromb Time International Ratio 1.1 (0.9-1.1) Activated Partial Thromboplast Time 28 SEC (23-33) Sodium Level 136 MMOL/L (136-145) Potassium Level 3.6 MMOL/L (3.5-5.1) Chloride Level 104 MMOL/L (98-107) Carbon Dioxide Level 28 MMOL/L (21-32) Blood Urea Nitrogen 3 mg/dL (7-18) L Creatinine 1.0 MG/DL (0.55-1.30) Estimat Glomerular Filtration Rate > 60 mL/min (>60) Glucose Level 129 MG/DL (74-106) H Calcium Level 8.2 MG/DL (8.5-10.1) L Height (Feet): 5 Height (Inches): 8.00 Weight (Pounds): 240 Medications Current Medications Medications (Trade) Dose Ordered Sig/Britton Route PRN Reason Start Time Stop Time Status Last Admin Dose Admin Acetaminophen (Tylenol) 650 mg PRN PRN RECTAL Mild Pain (Pain Scale 1-3) 04/23/20 20:00 Ampicillin Sodium/ Sulbactam Sodium 3 gm/Sodium Chloride 110 ml @ 220 mls/hr Q6H IVPB 04/24/20 13:00 05/01/20 12:59 04/25/20 06:00 Calcium Carbonate (Tums) 500 mg Q3H PRN ORAL Abdominal cramps 04/24/20 07:30 07/23/20 07:29 Fluoxetine HCl (PROzac) 20 mg DAILY ORAL 04/25/20 09:00 05/25/20 08:59 Hydromorphone HCl (Dilaudid) 0.5 mg Q4H PRN IVP For Pain 04/25/20 08:34 05/02/20 08:33 Iohexol (OMNIPAQUE-300 100ml) NOW PRN INJ Radiology Procedure 04/23/20 15:15 04/25/20 15:02 Iohexol (OMNIPAQUE-300 100ml) 100 ml NOW PRN INJ Radiology Procedure 04/23/20 16:15 04/25/20 16:09 Lorazepam (Ativan) 2 mg Q6H PRN ORAL For Anxiety 04/24/20 09:51 05/01/20 09:50 Ondansetron HCl (Zofran) 4 mg Q4H PRN IVP Nausea & Vomiting 04/23/20 22:15 05/23/20 22:14 Pantoprazole (Protonix) 40 mg DAILY IVP 04/24/20 09:00 05/24/20 08:59 04/24/20 09:17 Sodium Chloride 1,000 ml @ 125 mls/hr Q8H IV 04/23/20 22:15 05/23/20 22:14 04/25/20 02:48 Assessment/Plan Assessment/Plan: (1) Lumbar DDD (2) Lumbar Spondylosis (3) Lumbar Radiculopathy Patient to be continued on Dilaudid as needed D/w Dr. Bailon and he concurred. Chris Caicedo Apr 25, 2020 08:41
[2020-04-25] MEDS: Hydromorphone 0.5mg/0.5ml inj IVP PRN ×2 (08:42→17:22)
--- NOTE | 2020-04-25 10:05 | General Progress Note ---
Assessment/Plan Problem List: (1) Cocaine abuse ICD Codes: F14.10 - Cocaine abuse, uncomplicated SNOMED: 42673965 (2) Facial cellulitis ICD Codes: L03.211 - Cellulitis of face SNOMED: 079267166 (3) Elevated LFTs ICD Codes: R79.89 - Other specified abnormal findings of blood chemistry SNOMED: 362929035, 189271041 Status: stable, progressing Assessment/Plan: fu LFTS hepatitis panel on oral diet pain control will fu Subjective ROS Limited/Unobtainable: Yes Allergies: Coded Allergies: MORPHINE (Verified Allergy, Unknown, 04/23/20) Objective Last 24 Hour Vital Signs Date Time Temp Pulse Resp B/P (MAP) Pulse Ox O2 Delivery O2 Flow Rate FiO2 04/25/20 09:00 Room Air 04/25/20 08:00 98.3 70 18 113/67 (82) 99 04/25/20 04:00 97.9 66 20 110/60 (77) 95 04/25/20 00:00 98.2 62 18 105/57 (73) 95 04/24/20 20:34 Room Air 04/24/20 20:00 97.4 70 18 107/63 (78) 97 04/24/20 16:00 97.8 64 16 110/71 (84) 97 04/24/20 12:00 98.0 79 16 109/69 (82) 98 Intake and Output 04/24/20 04/25/20 19:00 07:00 Intake Total 1600 ml 2085 ml Balance 1600 ml 2085 ml Intake Oral 600 ml 710 ml IV Total 1000 ml 1375 ml # Voids 2 2 Laboratory Tests 04/25/20 05:10: White Blood Count 8.7, Red Blood Count 3.59L, Hemoglobin 11.0L, Hematocrit 33.4L , Mean Corpuscular Volume 93, Mean Corpuscular Hemoglobin 30.6, Mean Corpuscular Hemoglobin Concent 32.9, Red Cell Distribution Width 14.6, Platelet Count 211, Mean Platelet Volume 8.4, Neutrophils (%) (Auto) 78.4H, Lymphocytes ( %) (Auto) 14.1L, Monocytes (%) (Auto) 6.6, Eosinophils (%) (Auto) 0.3, Basophils (%) (Auto) 0.5, Prothrombin Time 11.9H, Prothromb Time International Ratio 1.1, Activated Partial Thromboplast Time 28, Sodium Level 136, Potassium Level 3.6, Chloride Level 104, Carbon Dioxide Level 28, Blood Urea Nitrogen 3L, Creatinine 1.0, Estimat Glomerular Filtration Rate > 60, Glucose Level 129H, Calcium Level 8.2L Height (Feet): 5 Height (Inches): 8.00 Weight (Pounds): 240 General Appearance: no apparent distress EENT: normal ENT inspection Neck: supple Cardiovascular: normal rate Respiratory/Chest: decreased breath sounds Abdomen: soft, hypoactive bowel sounds, tender Extremities: non-tender Lamin Louise MD Apr 25, 2020 10:05
[2020-04-25] MEDS ORDERED: Hydromorphone 0.5mg/0.5ml inj IVP PRN (10:15)
[2020-04-25 12:00] VITALS: BP 104/69
--- NOTE | 2020-04-25 12:45 | Surgery Progress Note ---
Surgery Progress Note Subjective Additional Comments still with pain no n/v labs noted rectus hematoma clinically stable acute hepatic insufficiency ongoing eval Objective Last 24 Hour Vital Signs Date Time Temp Pulse Resp B/P (MAP) Pulse Ox O2 Delivery O2 Flow Rate FiO2 04/25/20 12:00 97.4 63 18 104/69 (81) 97 04/25/20 09:00 Room Air 04/25/20 08:00 98.3 70 18 113/67 (82) 99 04/25/20 04:00 97.9 66 20 110/60 (77) 95 04/25/20 00:00 98.2 62 18 105/57 (73) 95 04/24/20 20:34 Room Air 04/24/20 20:00 97.4 70 18 107/63 (78) 97 04/24/20 16:00 97.8 64 16 110/71 (84) 97 I&O Intake and Output 04/24/20 04/25/20 19:00 07:00 Intake Total 1600 ml 2085 ml Balance 1600 ml 2085 ml Intake Oral 600 ml 710 ml IV Total 1000 ml 1375 ml # Voids 2 2 Cardiovascular: RSR Respiratory: clear Abdomen: soft, tenderness, present bowel sounds, non-distended Extremities: no edema, no tenderness, no cyanosis Laboratory Tests Test 04/25/20 05:10 White Blood Count 8.7 K/UL (4.8-10.8) Red Blood Count 3.59 M/UL (4.20-5.40) L Hemoglobin 11.0 G/DL (12.0-16.0) L Hematocrit 33.4 % (37.0-47.0) L Mean Corpuscular Volume 93 FL (80-99) Mean Corpuscular Hemoglobin 30.6 PG (27.0-31.0) Mean Corpuscular Hemoglobin Concent 32.9 G/DL (32.0-36.0) Red Cell Distribution Width 14.6 % (11.6-14.8) Platelet Count 211 K/UL (150-450) Mean Platelet Volume 8.4 FL (6.5-10.1) Neutrophils (%) (Auto) 78.4 % (45.0-75.0) H Lymphocytes (%) (Auto) 14.1 % (20.0-45.0) L Monocytes (%) (Auto) 6.6 % (1.0-10.0) Eosinophils (%) (Auto) 0.3 % (0.0-3.0) Basophils (%) (Auto) 0.5 % (0.0-2.0) Prothrombin Time 11.9 SEC (9.30-11.50) H Prothromb Time International Ratio 1.1 (0.9-1.1) Activated Partial Thromboplast Time 28 SEC (23-33) Sodium Level 136 MMOL/L (136-145) Potassium Level 3.6 MMOL/L (3.5-5.1) Chloride Level 104 MMOL/L (98-107) Carbon Dioxide Level 28 MMOL/L (21-32) Blood Urea Nitrogen 3 mg/dL (7-18) L Creatinine 1.0 MG/DL (0.55-1.30) Estimat Glomerular Filtration Rate > 60 mL/min (>60) Glucose Level 129 MG/DL (74-106) H Calcium Level 8.2 MG/DL (8.5-10.1) L Plan Problems: (1) Periodontal abscess Assessment & Plan: small <1cm abx as per Id outpatient dental f/u Bones/joints: Visualized calvarium is unremarkable. Zygomatic arches are unremarkable. No acute fracture. Soft tissues: There is soft tissue swelling and haziness anterior to the left submandibular gland presumably related to are dental etiology. Orbits: Unremarkable. Submandibular/parotid glands: Parotid glands are unremarkable. Submandible glands are unremarkable. Sinuses: Mild to moderate chronic left maxillary sinusitis. Dental: Best seen on axial series 6 image 25 coronal image 18, there is suggestion of a 0.7 x 0.5 x 0.9 cm probable periodontal abscess collection. IMPRESSION: There is significant soft tissue swelling and stranding within the 17 is tissues at the left submandibular region. Moreover, within the deep soft tissues adjacent to the teeth, there is suggestion of a probable periodontal abscess collection involving one of the molars. (2) Elevated LFTs Assessment & Plan: likely from Etoh abuse discussed cessation patient understands discussed medication use and adverse effects okay for diet trend labs improving (3) Hematoma of rectus sheath Assessment & Plan: denies trauma on exam not palpable given size will monitor trend h/h clinically stable monitor h/h Liver: Diffuse fatty infiltration of the liver is noted. The liver and the spleen enhance uniformly. Gallbladder and bile ducts: See below. Pancreas: See below. Spleen: See above. Adrenals: The adrenal glands, the head, body, tail of the pancreas, and the gallbladder are unremarkable. Kidneys and ureters: Both kidneys are shown to excrete contrast bilaterally. 0.5 cm probable simple cyst midpole region of the left kidney. No follow-up is advised. No hydronephrosis. Stomach and bowel: Moderate quantity of stool. No evidence of bowel obstruction. No mucosal thickening. PELVIS: Appendix: The appendix is seen on axial image 64 and is unremarkable. Bladder: Bladder is underdistended appeared Reproductive: Mildly distended endometrial cavity which is fluid- filled. ABDOMEN and PELVIS: Intraperitoneal space: Unremarkable. No free air. No significant fluid collection. Bones/joints: Mild osteoarthritic changes about the sacroiliac joints. Alignment of the thoracolumbar spine is unremarkable. The sacrum and coccyx are unremarkable. No acute fracture. Soft tissues: Ischiorectal fat is clean. Best seen on series 4 image 65 within the anterior aspect of the lower right rectus abdominous muscle at the midline there is a 0.6 and your hypodensity, possibly focal area of acute hemorrhage Vasculature: Flow is demonstrated within the celiac, SMA, the renal arteries, and KALEN. No abdominal aortic aneurysm. Lymph nodes: No retroperitoneal lymphadenopathy. Other findings: A 1.7 cm Alexus's duct cyst left pudendal region. A 0.6 cm Alexus's duct cyst right pudendal region. IMPRESSION: 1. Small hiatal hernia. 2. Probable distal esophagitis. 3. Fatty infiltration of the liver. 4. Gallbladder is unremarkable. 5. No renal calculus or hydronephrosis. 6. The appendix is unremarkable. 7. Moderate quantity of stool without bowel obstruction. 8. 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 9. Possible focal area of acute hemorrhage within the medial aspect of the right rectus abdominis muscle best seen on series 4 image 65. Alfonzo Mclaughlin Apr 25, 2020 12:45
--- NOTE | 2020-04-25 13:22 | Consultation ---
History of Present Illness General Date patient seen: Apr 25, 2020 Chief Complaint: Toothache Present Illness HPI 30 y/o F with hx of ETOH and drug abuse, asthma, presented to ED on with 2 weeks of toothache (L upper side) and 2 days of facial swelling; has not seen a dentist because he is scared of needles. Has limited range of motion opening mouth. Upon admission, patient was noted to have elevated LFTs. Also complained of intermittent RUQ. Denied tingling, numbness, ear pain, f/c, sore throat, blurry vision, CP, SOB, CARLSON, dizziness, facial trauma, n/v/d Allergies: Coded Allergies: MORPHINE (Verified Allergy, Unknown, 04/23/20) Patient History Healthcare decision maker Resuscitation status Advanced Directive on File Patient History Narrative Pmhx: as above Shx: rinks alcohol daily basis abuse. Denies any IV drug use. Positive smoke. . Positive marijuana use. Fhx: non contributory Review of Systems All Other Systems: negative except mentioned in HPI Physical Exam Physical Exam Narrative GENERAL: Calm in bed, oriented x3, no acute distress. CARDIOVASCULAR: No murmurs. LUNGS: Distant and clear. ABDOMEN: Bowel sound positive. Nontender. Nondistended. EXTREMITIES: No cyanosis, clubbing, or edema. SKIN: Left facial area slightly swollen, no increased warmth. NEUROLOGIC: The patient moves all extremities, slightly weak. Last 24 Hour Vital Signs Date Time Temp Pulse Resp B/P (MAP) Pulse Ox O2 Delivery O2 Flow Rate FiO2 04/25/20 12:00 97.4 63 18 104/69 (81) 97 04/25/20 09:00 Room Air 04/25/20 08:00 98.3 70 18 113/67 (82) 99 04/25/20 04:00 97.9 66 20 110/60 (77) 95 04/25/20 00:00 98.2 62 18 105/57 (73) 95 04/24/20 20:34 Room Air 04/24/20 20:00 97.4 70 18 107/63 (78) 97 04/24/20 16:00 97.8 64 16 110/71 (84) 97 Intake and Output 04/24/20 04/25/20 19:00 07:00 Intake Total 1600 ml 2085 ml Balance 1600 ml 2085 ml Intake Oral 600 ml 710 ml IV Total 1000 ml 1375 ml # Voids 2 2 Laboratory Tests Test 04/25/20 05:10 White Blood Count 8.7 K/UL (4.8-10.8) Red Blood Count 3.59 M/UL (4.20-5.40) L Hemoglobin 11.0 G/DL (12.0-16.0) L Hematocrit 33.4 % (37.0-47.0) L Mean Corpuscular Volume 93 FL (80-99) Mean Corpuscular Hemoglobin 30.6 PG (27.0-31.0) Mean Corpuscular Hemoglobin Concent 32.9 G/DL (32.0-36.0) Red Cell Distribution Width 14.6 % (11.6-14.8) Platelet Count 211 K/UL (150-450) Mean Platelet Volume 8.4 FL (6.5-10.1) Neutrophils (%) (Auto) 78.4 % (45.0-75.0) H Lymphocytes (%) (Auto) 14.1 % (20.0-45.0) L Monocytes (%) (Auto) 6.6 % (1.0-10.0) Eosinophils (%) (Auto) 0.3 % (0.0-3.0) Basophils (%) (Auto) 0.5 % (0.0-2.0) Prothrombin Time 11.9 SEC (9.30-11.50) H Prothromb Time International Ratio 1.1 (0.9-1.1) Activated Partial Thromboplast Time 28 SEC (23-33) Sodium Level 136 MMOL/L (136-145) Potassium Level 3.6 MMOL/L (3.5-5.1) Chloride Level 104 MMOL/L (98-107) Carbon Dioxide Level 28 MMOL/L (21-32) Blood Urea Nitrogen 3 mg/dL (7-18) L Creatinine 1.0 MG/DL (0.55-1.30) Estimat Glomerular Filtration Rate > 60 mL/min (>60) Glucose Level 129 MG/DL (74-106) H Calcium Level 8.2 MG/DL (8.5-10.1) L Height (Feet): 5 Height (Inches): 8.00 Weight (Pounds): 240 Medications Current Medications Medications (Trade) Dose Ordered Sig/Britton Route PRN Reason Start Time Stop Time Status Last Admin Dose Admin Acetaminophen (Tylenol) 650 mg PRN PRN RECTAL Mild Pain (Pain Scale 1-3) 04/23/20 20:00 Ampicillin Sodium/ Sulbactam Sodium 3 gm/Sodium Chloride 110 ml @ 220 mls/hr Q6H IVPB 04/24/20 13:00 05/01/20 12:59 04/25/20 06:00 Calcium Carbonate (Tums) 500 mg Q3H PRN ORAL Abdominal cramps 04/24/20 07:30 07/23/20 07:29 Docusate Sodium (Colace) 100 mg TWICE A DAY ORAL 04/25/20 18:00 05/25/20 17:59 Fluoxetine HCl (PROzac) 20 mg DAILY ORAL 04/25/20 09:00 05/25/20 08:59 Hydromorphone HCl (Dilaudid) 0.5 mg Q4H PRN IVP For Pain 04/25/20 08:34 05/02/20 08:33 04/25/20 08:42 Iohexol (OMNIPAQUE-300 100ml) NOW PRN INJ Radiology Procedure 04/23/20 15:15 04/25/20 15:02 Iohexol (OMNIPAQUE-300 100ml) 100 ml NOW PRN INJ Radiology Procedure 04/23/20 16:15 04/25/20 16:09 Lorazepam (Ativan) 2 mg Q6H PRN ORAL For Anxiety 04/24/20 09:51 05/01/20 09:50 Ondansetron HCl (Zofran) 4 mg Q4H PRN IVP Nausea & Vomiting 04/23/20 22:15 05/23/20 22:14 Pantoprazole (Protonix) 40 mg DAILY IVP 04/24/20 09:00 05/24/20 08:59 04/25/20 08:41 Polyethylene Glycol (Miralax) 17 gm BEDTIME ORAL 04/25/20 21:00 05/25/20 20:59 Sodium Chloride 1,000 ml @ 125 mls/hr Q8H IV 04/23/20 22:15 05/23/20 22:14 04/25/20 02:48 Assessment/Plan Assessment/Plan: Abx: Unasyn 04/24- Flagyl x1 04/24 Zosyn x1 04/24 Clindamycin x1 04/23 Assessment: L facial cellulitis - from dental origin> Probable periodontal abscess -CT face: There is significant soft tissue swelling and stranding within the 17 is tissues at the left submandibular region. Moreover, within the deep soft tissues adjacent to the teeth, there is suggestion of a probable periodontal abscess collection involving one of the molars. Afebrile NO leukocytosis -04/23 u/a wbc 15-20, nit neg, leuk +3; ucx 70-80 mixed gram positive organisms Abd pain (intermittent)- ?acute hemorrhage Rectus abdominis muscle Significant elevation LFTs (up to 2k); now improving - r/o toxic (drug related) vs viral hepatitis -acetaminophen, ETOH levels not detected -acute hep panel p -CT abd/p w/: . Small hiatal hernia. Probable distal esophagitis. Fatty infiltration of the liver. Gallbladder is unremarkable. No renal calculus or hydronephrosis. The appendix is unremarkable. Moderate quantity of stool without bowel obstruction. 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 Possible focal area of acute hemorrhage within the medial aspect of the right rectus abdominis muscle best seen on series 4 image 65. Sharda vaginitis UDS + cocaine, THC, benzo ETOH and drug abuse asthma Plan: -Continue Unasyn #2 (abx d #3) -Fluconazole 150mg PO x1 -f/u cx -Monitor CBC/CMP, temperatures -GI, Gen sx f/u -f/u acute hep panel -HIV ab screen, CMV, VZV, EBV panel Thank you for this consultation. Will continue to follow along with you. Discussed with Belkis Joaquin M.D. Apr 25, 2020 13:22
[2020-04-25 16:00] VITALS: BP 97/57
[2020-04-25] MEDS: Docusate 100mg cap ORAL SCH (17:22)
[2020-04-25 20:00] VITALS: BP 113/68
[2020-04-25] MEDS ORDERED: Fluconazole 150mg tab ORAL SCH (20:00)
[2020-04-25] MEDS ORDERED: Miralax 17gm pkt ORAL SCH (21:00)
--- NOTE | 2020-04-25 23:30 | Initial Psychiatric Evaluation ---
Psychiatry Consultation Psychiatry Consultation Chief Complaint: Toothache Allergies: Coded Allergies: MORPHINE (Verified Allergy, Unknown, 04/23/20) Objective Data Height (Feet): 5 Height (Inches): 8.00 Weight (Pounds): 240 Ramses Martinez MD Apr 25, 2020 23:30
[2020-04-26] VITALS: BP 106/59
[2020-04-26] MEDS: Ampicillin/Sulbactam Sod 3 GM in NS 110 ML IVPB SCH ×3 (00:32→14:03)
[2020-04-26 04:00] VITALS: BP 110/61
[2020-04-26 06:11] LABS: EOSINOPHILS % (AUTO) 1.5 % (0.0-3.0); HEMATOCRIT 33.9 % (37.0-47.0); LYMPHOCYTES % (AUTO) 34.7 % (20.0-45.0); MEAN CORPUSCULAR VOLUME 95 FL (80-99); NEUTROPHILS % (AUTO) 53.8 % (45.0-75.0); PLATELET COUNT 190 K/UL (150-450); RED BLOOD COUNT 3.58 M/UL (4.20-5.40); RED CELL DISTRIBUTION WIDTH 15.1 % (11.6-14.8); WHITE BLOOD COUNT 6.1 K/UL (4.8-10.8)
--- NOTE | 2020-04-26 06:24 | General Progress Note ---
Assessment/Plan Problem List: (1) Cocaine abuse ICD Codes: F14.10 - Cocaine abuse, uncomplicated SNOMED: 73442607 (2) Facial cellulitis ICD Codes: L03.211 - Cellulitis of face SNOMED: 959117061 (3) Elevated LFTs ICD Codes: R79.89 - Other specified abnormal findings of blood chemistry SNOMED: 098520845, 767713888 Status: stable, progressing Assessment/Plan: fu LFTS hepatitis panel pending viral serology pending on oral diet pain control repeat labs will fu Subjective Allergies: Coded Allergies: MORPHINE (Verified Allergy, Unknown, 04/23/20) Objective Last 24 Hour Vital Signs Date Time Temp Pulse Resp B/P (MAP) Pulse Ox O2 Delivery O2 Flow Rate FiO2 04/26/20 04:00 97.9 65 18 110/61 (77) 96 04/26/20 00:00 98.3 62 18 106/59 (75) 97 04/25/20 20:54 Room Air 04/25/20 20:00 98.3 63 16 113/68 (83) 97 04/25/20 16:00 98.2 67 16 97/57 (70) 98 04/25/20 12:00 97.4 63 18 104/69 (81) 97 04/25/20 09:00 Room Air 04/25/20 08:00 98.3 70 18 113/67 (82) 99 Intake and Output 04/25/20 04/26/20 19:00 07:00 Intake Total 2270 ml 1725 ml Balance 2270 ml 1725 ml Intake Oral 800 ml 600 ml IV Total 1470 ml 1125 ml # Voids 2 2 Laboratory Tests 04/25/20 13:50: Chlamydia trachomatis RNA [Pending], Neisseria gonorrhoeae RNA [Pending] 04/26/20 04:50: White Blood Count [Pending], Red Blood Count [Pending], Hemoglobin [Pending], Hematocrit [Pending], Mean Corpuscular Volume [Pending], Mean Corpuscular Hemoglobin [Pending], Mean Corpuscular Hemoglobin Concent [Pending], Red Cell Distribution Width [Pending], Platelet Count [Pending], Mean Platelet Volume [ Pending], Neutrophils (%) (Auto) [Pending], Lymphocytes (%) (Auto) [Pending], Monocytes (%) (Auto) [Pending], Eosinophils (%) (Auto) [Pending], Basophils (%) (Auto) [Pending], Sodium Level [Pending], Potassium Level [Pending], Chloride Level [Pending], Carbon Dioxide Level [Pending], Blood Urea Nitrogen [Pending], Creatinine [Pending], Estimat Glomerular Filtration Rate [Pending], Glucose Level [Pending], Calcium Level [Pending], Total Bilirubin [Pending], Aspartate Amino Transf (AST/SGOT) [Pending], Alanine Aminotransferase (ALT/SGPT) [Pending] , Alkaline Phosphatase [Pending], Total Protein [Pending], Albumin [Pending], Globulin [Pending], Amylase Level [Pending], Lipase [Pending], Rapid Plasma Reagin [Pending], Hemanth-Ruiz Virus Capsid Ag IgG Ab [Pending], Hemanth-Ruiz Virus Capsid Ag IgM Ab [Pending], EBV Early Ag Ab (Restrict +Diffuse) [Pending] , Hemanth-Ruiz Virus Nuclear Ag Ab [Pending], Hepatitis A IgM Antibody [Pending] , Hepatitis B Surface Antigen [Pending], Hepatitis B Core IgM Antibody [Pending] , Hepatitis C Antibody [Pending], HIV-1 RNA (PCR) log10 Value [Pending], HIV-1 RNA Ultraquantitative (PCR) [Pending], HIV (1&2) Antibody Rapid [Pending], Varicella-Zoster IgM Antibody [Pending] Height (Feet): 5 Height (Inches): 8.00 Weight (Pounds): 254 General Appearance: alert EENT: normal ENT inspection Neck: supple Cardiovascular: normal rate Respiratory/Chest: decreased breath sounds Abdomen: soft, hypoactive bowel sounds Extremities: non-tender Lamin Louise MD Apr 26, 2020 06:24
[2020-04-26 06:51] LABS: ALANINE AMINOTRANSFERASE 669 U/L (12-78); ALBUMIN 2.5 G/DL (3.4-5.0); ALBUMIN/GLOBULIN RATIO 0.7 (1.0-2.7); ALKALINE PHOSPHATASE 97 U/L (46-116); ANION GAP 7 mmol/L (5-15); ASPARTATE AMINO TRANSFERASE 104 U/L (15-37); BILIRUBIN,TOTAL 0.5 MG/DL (0.2-1.0); BLOOD UREA NITROGEN 8 mg/dL (7-18); CALCIUM 8.6 MG/DL (8.5-10.1); CARBON DIOXIDE 27 MMOL/L (21-32); CHLORIDE 103 MMOL/L (98-107); POTASSIUM 3.9 MMOL/L (3.5-5.1); SODIUM 137 MMOL/L (136-145)
[2020-04-26 07:25] LABS: AMYLASE 31 U/L (25-115)
[2020-04-26 08:00] VITALS: BP 123/78
--- NOTE | 2020-04-26 08:45 | General Progress Note ---
Assessment/Plan Assessment/Plan: (1) Lumbar DDD (2) Lumbar Spondylosis (3) Lumbar Radiculopathy Patient to be continued on Dilaudid as needed D/w Dr. Bailon and he concurred. Subjective Date patient seen: Apr 26, 2020 Time patient seen: 08:00 - am Allergies: Coded Allergies: MORPHINE (Verified Allergy, Unknown, 04/23/20) Subjective General ROS: no weight loss or fever Psychological ROS: no depression or mood changes, no memory loss Ophthalmic ROS: no visual changes or eye irritation ENT ROS: no nasal congestion, hearing loss, dizziness Allergy and Immunology ROS: no allergic symptoms or urticaria Hematological and Lymphatic ROS: no swollen glands, unusual bleeding or bruising Endocrine ROS: no polyuria, polydipsia, weight changes, temperature intolerance Respiratory ROS: no cough, shortness of breath, or wheezing Cardiovascular ROS: no chest pain or dyspnea on exertion Gastrointestinal ROS: denies abdominal pain, bright red blood in stool. Musculoskeletal ROS: no myalgias or arthralgias Neurological ROS: no TIA or stroke symptoms Dermatological ROS: no new or changing skin lesions, rashes or pruritis SUBJECTIVE: In bed no signs of pain or distress. Pain has been at a moderate level and tolerated on the Dilaudid. No new complaints at this time Objective Last 24 Hour Vital Signs Date Time Temp Pulse Resp B/P (MAP) Pulse Ox O2 Delivery O2 Flow Rate FiO2 04/26/20 08:00 97.9 59 18 123/78 (93) 99 04/26/20 04:00 97.9 65 18 110/61 (77) 96 04/26/20 00:00 98.3 62 18 106/59 (75) 97 04/25/20 20:54 Room Air 04/25/20 20:00 98.3 63 16 113/68 (83) 97 04/25/20 16:00 98.2 67 16 97/57 (70) 98 04/25/20 12:00 97.4 63 18 104/69 (81) 97 04/25/20 09:00 Room Air Intake and Output 04/25/20 04/26/20 19:00 07:00 Intake Total 2270 ml 1850 ml Balance 2270 ml 1850 ml Intake Oral 800 ml 600 ml IV Total 1470 ml 1250 ml # Voids 2 2 Laboratory Tests 04/25/20 13:50: Chlamydia trachomatis RNA [Pending], Neisseria gonorrhoeae RNA [Pending] 04/26/20 04:50: White Blood Count 6.1, Red Blood Count 3.58L, Hemoglobin 11.0L, Hematocrit 33.9L , Mean Corpuscular Volume 95, Mean Corpuscular Hemoglobin 30.6, Mean Corpuscular Hemoglobin Concent 32.3, Red Cell Distribution Width 15.1H, Platelet Count 190, Mean Platelet Volume 8.4, Neutrophils (%) (Auto) 53.8, Lymphocytes (%) (Auto) 34.7, Monocytes (%) (Auto) 9.0, Eosinophils (%) (Auto) 1.5, Basophils (%) (Auto) 1.0, Sodium Level 137, Potassium Level 3.9, Chloride Level 103, Carbon Dioxide Level 27, Anion Gap 7, Blood Urea Nitrogen 8, Creatinine 1.0, Estimat Glomerular Filtration Rate > 60, Glucose Level 88, Calcium Level 8.6, Total Bilirubin 0.5, Aspartate Amino Transf (AST/SGOT) 104H, Alanine Aminotransferase (ALT/SGPT) 669H, Alkaline Phosphatase 97, Total Protein 6.2L, Albumin 2.5L, Globulin 3.7, Albumin/Globulin Ratio 0.7L, Amylase Level 31, Lipase 116, Rapid Plasma Reagin [Pending], Hemanth-Ruiz Virus Capsid Ag IgG Ab [Pending], Hemanth-Ruiz Virus Capsid Ag IgM Ab [Pending], EBV Early Ag Ab (Restrict +Diffuse) [Pending], Hemanth-Ruiz Virus Nuclear Ag Ab [Pending] , Hepatitis A IgM Antibody [Pending], Hepatitis B Surface Antigen [Pending], Hepatitis B Core IgM Antibody [Pending], Hepatitis C Antibody [Pending], HIV-1 RNA (PCR) log10 Value [Pending], HIV-1 RNA Ultraquantitative (PCR) [Pending], HIV (1&2) Antibody Rapid Negative, Varicella-Zoster IgM Antibody [Pending] Height (Feet): 5 Height (Inches): 8.00 Weight (Pounds): 254 Objective General appearance: alert, cooperative, no distress, appears stated age Head: Normocephalic, without obvious abnormality, atraumatic Eyes: conjunctivae/corneas clear. PERRL, EOM's intact. Fundi benign Throat: Lips, mucosa, and tongue normal. left gum has historic scar. Neck: supple, symmetrical, trachea midline, no adenopathy, thyroid: not enlarged, symmetric, no tenderness/mass/nodules, no carotid bruit and no JVD Lungs: clear to auscultation bilaterally Heart: regular rate and rhythm, S1, S2 normal, no murmur, click, rub or gallop Abdomen: soft, non-tender. Bowel sounds normal. No masses, no organomegaly Extremities: extremities normal, atraumatic, no cyanosis or edema Pulses: 2+ and symmetric Skin: Skin color, texture, turgor normal. No rashes or lesions Neurologic: Grossly normal Chris Caicedo Apr 26, 2020 08:45
[2020-04-26] MEDS: Docusate 100mg cap ORAL SCH (09:13)
[2020-04-26] MEDS: Pantoprazole Inj IVP SCH (09:13)
[2020-04-26] MEDS: Hydromorphone 0.5mg/0.5ml inj IVP PRN (11:15)
[2020-04-26 12:00] VITALS: BP 118/81
--- NOTE | 2020-04-26 13:30 | General Progress Note ---
Assessment/Plan Problem List: (1) UTI (urinary tract infection) ICD Codes: N39.0 - Urinary tract infection, site not specified SNOMED: 87421002 (2) Facial cellulitis ICD Codes: L03.211 - Cellulitis of face SNOMED: 175600100 (3) Periodontal abscess ICD Codes: K05.219 - Aggressive periodontitis, localized, unspecified severity SNOMED: 00068105, 400645487 (4) Elevated LFTs ICD Codes: R79.89 - Other specified abnormal findings of blood chemistry SNOMED: 059507167, 428852058 Status: stable, progressing Assessment/Plan: diet abx pain control cbc bmp am dc if clear Subjective Constitutional: Reports: weakness Allergies: Coded Allergies: MORPHINE (Verified Allergy, Unknown, 04/23/20) All Systems: reviewed and negative except above Subjective calm in bed Objective Last 24 Hour Vital Signs Date Time Temp Pulse Resp B/P (MAP) Pulse Ox O2 Delivery O2 Flow Rate FiO2 04/26/20 12:00 97.5 63 20 118/81 (93) 99 04/26/20 11:45 97.9 04/26/20 09:00 Room Air 04/26/20 08:00 97.9 59 18 123/78 (93) 99 04/26/20 04:00 97.9 65 18 110/61 (77) 96 04/26/20 00:00 98.3 62 18 106/59 (75) 97 04/25/20 20:54 Room Air 04/25/20 20:00 98.3 63 16 113/68 (83) 97 04/25/20 16:00 98.2 67 16 97/57 (70) 98 Intake and Output 04/25/20 04/26/20 19:00 07:00 Intake Total 2270 ml 1850 ml Balance 2270 ml 1850 ml Intake Oral 800 ml 600 ml IV Total 1470 ml 1250 ml # Voids 2 2 Laboratory Tests 04/25/20 13:50: Chlamydia trachomatis RNA [Pending], Neisseria gonorrhoeae RNA [Pending] 04/26/20 04:50: White Blood Count 6.1, Red Blood Count 3.58L, Hemoglobin 11.0L, Hematocrit 33.9L , Mean Corpuscular Volume 95, Mean Corpuscular Hemoglobin 30.6, Mean Corpuscular Hemoglobin Concent 32.3, Red Cell Distribution Width 15.1H, Platelet Count 190, Mean Platelet Volume 8.4, Neutrophils (%) (Auto) 53.8, Lymphocytes (%) (Auto) 34.7, Monocytes (%) (Auto) 9.0, Eosinophils (%) (Auto) 1.5, Basophils (%) (Auto) 1.0, Sodium Level 137, Potassium Level 3.9, Chloride Level 103, Carbon Dioxide Level 27, Anion Gap 7, Blood Urea Nitrogen 8, Creatinine 1.0, Estimat Glomerular Filtration Rate > 60, Glucose Level 88, Calcium Level 8.6, Total Bilirubin 0.5, Aspartate Amino Transf (AST/SGOT) 104H, Alanine Aminotransferase (ALT/SGPT) 669H, Alkaline Phosphatase 97, Total Protein 6.2L, Albumin 2.5L, Globulin 3.7, Albumin/Globulin Ratio 0.7L, Amylase Level 31, Lipase 116, Rapid Plasma Reagin [Pending], Hemanth-Ruiz Virus Capsid Ag IgG Ab [Pending], Hemanth-Ruiz Virus Capsid Ag IgM Ab [Pending], EBV Early Ag Ab (Restrict +Diffuse) [Pending], Hemanth-Ruiz Virus Nuclear Ag Ab [Pending] , Hepatitis A IgM Antibody [Pending], Hepatitis B Surface Antigen [Pending], Hepatitis B Core IgM Antibody [Pending], Hepatitis C Antibody [Pending], HIV-1 RNA (PCR) log10 Value [Pending], HIV-1 RNA Ultraquantitative (PCR) [Pending], HIV (1&2) Antibody Rapid Negative, Varicella-Zoster IgM Antibody [Pending] Height (Feet): 5 Height (Inches): 8.00 Weight (Pounds): 254 General Appearance: alert EENT: normal ENT inspection Neck: normal alignment Cardiovascular: normal peripheral pulses, normal rate, regular rhythm Respiratory/Chest: chest wall non-tender, lungs clear, normal breath sounds Abdomen: normal bowel sounds, non tender, soft Extremities: normal inspection Edema: no edema noted Arm (L), no edema noted Arm (R), no edema noted Leg (L), no edema noted Leg (R), no edema noted Pedal (L), no edema noted Pedal (R), no edema noted Generalized Neurologic: motor weakness Skin: normal pigmentation, warm/dry Objective sl left facial swelling Esdras Partida DO Apr 26, 2020 13:30
[2020-04-26] MEDS ORDERED: VENTOLIN HFA18 GM INH (13:45)
--- NOTE | 2020-04-26 14:22 | Infectious Diseases Prog Note ---
Assessment/Plan Assessment: L facial cellulitis - from dental origin> Probable periodontal abscess -CT face: There is significant soft tissue swelling and stranding within the 17 is tissues at the left submandibular region. Moreover, within the deep soft tissues adjacent to the teeth, there is suggestion of a probable periodontal abscess collection involving one of the molars. Afebrile NO leukocytosis -04/23 u/a wbc 15-20, nit neg, leuk +3; ucx 70-80 mixed gram positive organisms Abd pain (intermittent)- ?acute hemorrhage Rectus abdominis muscle Significant elevation LFTs (up to 2k); now improving - likely toxic (drug related) - r/o viral hepatitis -acetaminophen, ETOH levels not detected -acute hep panel neg, HIV ab screen neg -CT abd/p w/: . Small hiatal hernia. Probable distal esophagitis. Fatty infiltration of the liver. Gallbladder is unremarkable. No renal calculus or hydronephrosis. The appendix is unremarkable. Moderate quantity of stool without bowel obstruction. 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 Possible focal area of acute hemorrhage within the medial aspect of the right rectus abdominis muscle best seen on series 4 image 65. Sharda vaginitis UDS + cocaine, THC, benzo ETOH and drug abuse asthma Plan: -Continue Unasyn #3 (abx d #/) -upon discharge, can be transition to PO Augmentin 875/125mg PO Bid -04/25 SP Fluconazole 150mg PO x1 -04/24 SP Flagyl x1, ZOsyn x1 -04/23 SP Clindamycin x1 -f/u cx -Monitor CBC/CMP, temperatures -GI, Gen sx f/u -f/u CMV, VZV, EBV panel, RPR, GC/Cl -GI f/u Thank you for this consultation. Will continue to follow along with you. Discussed with RN. Subjective Allergies: Coded Allergies: MORPHINE (Verified Allergy, Unknown, 04/23/20) afebrile LFTs improving rapidly no leukocytosis Objective Last 24 Hour Vital Signs Date Time Temp Pulse Resp B/P (MAP) Pulse Ox O2 Delivery O2 Flow Rate FiO2 04/26/20 12:00 97.5 63 20 118/81 (93) 99 04/26/20 11:45 97.9 04/26/20 09:00 Room Air 04/26/20 08:00 97.9 59 18 123/78 (93) 99 04/26/20 04:00 97.9 65 18 110/61 (77) 96 04/26/20 00:00 98.3 62 18 106/59 (75) 97 04/25/20 20:54 Room Air 04/25/20 20:00 98.3 63 16 113/68 (83) 97 04/25/20 16:00 98.2 67 16 97/57 (70) 98 Height (Feet): 5 Height (Inches): 8.00 Weight (Pounds): 254 GENERAL: Calm in bed, oriented x3, no acute distress. CARDIOVASCULAR: No murmurs. LUNGS: Distant and clear. ABDOMEN: Bowel sound positive. Nontender. Nondistended. EXTREMITIES: No cyanosis, clubbing, or edema. SKIN: Left facial area slightly swollen, no increased warmth. NEUROLOGIC: The patient moves all extremities, slightly weak. Microbiology Date/Time Source Procedure Growth Status 04/23/20 15:15 Urine,Clean Catch Urine Culture - Final Mixed Urogenital Contaminants Complete Laboratory Tests Test 04/26/20 04:50 White Blood Count 6.1 K/UL (4.8-10.8) Red Blood Count 3.58 M/UL (4.20-5.40) L Hemoglobin 11.0 G/DL (12.0-16.0) L Hematocrit 33.9 % (37.0-47.0) L Mean Corpuscular Volume 95 FL (80-99) Mean Corpuscular Hemoglobin 30.6 PG (27.0-31.0) Mean Corpuscular Hemoglobin Concent 32.3 G/DL (32.0-36.0) Red Cell Distribution Width 15.1 % (11.6-14.8) H Platelet Count 190 K/UL (150-450) Mean Platelet Volume 8.4 FL (6.5-10.1) Neutrophils (%) (Auto) 53.8 % (45.0-75.0) Lymphocytes (%) (Auto) 34.7 % (20.0-45.0) Monocytes (%) (Auto) 9.0 % (1.0-10.0) Eosinophils (%) (Auto) 1.5 % (0.0-3.0) Basophils (%) (Auto) 1.0 % (0.0-2.0) Sodium Level 137 MMOL/L (136-145) Potassium Level 3.9 MMOL/L (3.5-5.1) Chloride Level 103 MMOL/L (98-107) Carbon Dioxide Level 27 MMOL/L (21-32) Anion Gap 7 mmol/L (5-15) Blood Urea Nitrogen 8 mg/dL (7-18) Creatinine 1.0 MG/DL (0.55-1.30) Estimat Glomerular Filtration Rate > 60 mL/min (>60) Glucose Level 88 MG/DL (74-106) Calcium Level 8.6 MG/DL (8.5-10.1) Total Bilirubin 0.5 MG/DL (0.2-1.0) Aspartate Amino Transf (AST/SGOT) 104 U/L (15-37) H Alanine Aminotransferase (ALT/SGPT) 669 U/L (12-78) H Alkaline Phosphatase 97 U/L (46-116) Total Protein 6.2 G/DL (6.4-8.2) L Albumin 2.5 G/DL (3.4-5.0) L Globulin 3.7 g/dL Albumin/Globulin Ratio 0.7 (1.0-2.7) L Amylase Level 31 U/L (25-115) Lipase 116 U/L (73-393) Rapid Plasma Reagin Pending Hemanth-Ruiz Virus Capsid Ag IgG Ab Pending Hemanth-Ruiz Virus Capsid Ag IgM Ab Pending EBV Early Ag Ab (Restrict +Diffuse) Pending Hemanth-Ruiz Virus Nuclear Ag Ab Pending Hepatitis A IgM Antibody Pending Hepatitis B Surface Antigen Pending Hepatitis B Core IgM Antibody Pending Hepatitis C Antibody Pending HIV-1 RNA (PCR) log10 Value Pending HIV-1 RNA Ultraquantitative (PCR) Pending HIV (1&2) Antibody Rapid Negative (NEGATIVE) Varicella-Zoster IgM Antibody Pending Current Medications Medications (Trade) Dose Ordered Sig/Britton Route PRN Reason Start Time Stop Time Status Last Admin Dose Admin Acetaminophen (Tylenol) 650 mg PRN PRN RECTAL Mild Pain (Pain Scale 1-3) 04/23/20 20:00 Ampicillin Sodium/ Sulbactam Sodium 3 gm/Sodium Chloride 110 ml @ 220 mls/hr Q6H IVPB 04/24/20 13:00 05/01/20 12:59 04/26/20 14:03 Calcium Carbonate (Tums) 500 mg Q3H PRN ORAL Abdominal cramps 04/24/20 07:30 07/23/20 07:29 Docusate Sodium (Colace) 100 mg TWICE A DAY ORAL 04/25/20 18:00 05/25/20 17:59 04/26/20 09:13 Fluoxetine HCl (PROzac) 20 mg DAILY ORAL 04/25/20 09:00 05/25/20 08:59 Hydromorphone HCl (Dilaudid) 0.5 mg Q4H PRN IVP For Pain 04/25/20 08:34 05/02/20 08:33 04/26/20 11:15 Lorazepam (Ativan) 2 mg Q6H PRN ORAL For Anxiety 04/24/20 09:51 05/01/20 09:50 Ondansetron HCl (Zofran) 4 mg Q4H PRN IVP Nausea & Vomiting 04/23/20 22:15 05/23/20 22:14 04/26/20 11:34 Pantoprazole (Protonix) 40 mg DAILY IVP 04/24/20 09:00 05/24/20 08:59 04/26/20 09:13 Polyethylene Glycol (Miralax) 17 gm BEDTIME ORAL 04/25/20 21:00 05/25/20 20:59 04/25/20 20:01 Sodium Chloride 1,000 ml @ 125 mls/hr Q8H IV 04/23/20 22:15 05/23/20 22:14 04/26/20 14:04 Belkis Pinto M.D. Apr 26, 2020 14:22
--- NOTE | 2020-04-26 15:33 | Surgery Progress Note ---
Surgery Progress Note Subjective Symptoms: improved, tolerating diet, voiding well, passing flatus, pain decreased Objective Last 24 Hour Vital Signs Date Time Temp Pulse Resp B/P (MAP) Pulse Ox O2 Delivery O2 Flow Rate FiO2 04/26/20 12:00 97.5 63 20 118/81 (93) 99 04/26/20 11:45 97.9 04/26/20 09:00 Room Air 04/26/20 08:00 97.9 59 18 123/78 (93) 99 04/26/20 04:00 97.9 65 18 110/61 (77) 96 04/26/20 00:00 98.3 62 18 106/59 (75) 97 04/25/20 20:54 Room Air 04/25/20 20:00 98.3 63 16 113/68 (83) 97 04/25/20 16:00 98.2 67 16 97/57 (70) 98 I&O Intake and Output 04/25/20 04/26/20 19:00 07:00 Intake Total 2270 ml 1850 ml Balance 2270 ml 1850 ml Intake Oral 800 ml 600 ml IV Total 1470 ml 1250 ml # Voids 2 2 Cardiovascular: RSR Respiratory: clear Abdomen: soft, non-tender, present bowel sounds, non-distended Extremities: no edema, no tenderness, no cyanosis Laboratory Tests Test 04/26/20 04:50 White Blood Count 6.1 K/UL (4.8-10.8) Red Blood Count 3.58 M/UL (4.20-5.40) L Hemoglobin 11.0 G/DL (12.0-16.0) L Hematocrit 33.9 % (37.0-47.0) L Mean Corpuscular Volume 95 FL (80-99) Mean Corpuscular Hemoglobin 30.6 PG (27.0-31.0) Mean Corpuscular Hemoglobin Concent 32.3 G/DL (32.0-36.0) Red Cell Distribution Width 15.1 % (11.6-14.8) H Platelet Count 190 K/UL (150-450) Mean Platelet Volume 8.4 FL (6.5-10.1) Neutrophils (%) (Auto) 53.8 % (45.0-75.0) Lymphocytes (%) (Auto) 34.7 % (20.0-45.0) Monocytes (%) (Auto) 9.0 % (1.0-10.0) Eosinophils (%) (Auto) 1.5 % (0.0-3.0) Basophils (%) (Auto) 1.0 % (0.0-2.0) Sodium Level 137 MMOL/L (136-145) Potassium Level 3.9 MMOL/L (3.5-5.1) Chloride Level 103 MMOL/L (98-107) Carbon Dioxide Level 27 MMOL/L (21-32) Anion Gap 7 mmol/L (5-15) Blood Urea Nitrogen 8 mg/dL (7-18) Creatinine 1.0 MG/DL (0.55-1.30) Estimat Glomerular Filtration Rate > 60 mL/min (>60) Glucose Level 88 MG/DL (74-106) Calcium Level 8.6 MG/DL (8.5-10.1) Total Bilirubin 0.5 MG/DL (0.2-1.0) Aspartate Amino Transf (AST/SGOT) 104 U/L (15-37) H Alanine Aminotransferase (ALT/SGPT) 669 U/L (12-78) H Alkaline Phosphatase 97 U/L (46-116) Total Protein 6.2 G/DL (6.4-8.2) L Albumin 2.5 G/DL (3.4-5.0) L Globulin 3.7 g/dL Albumin/Globulin Ratio 0.7 (1.0-2.7) L Amylase Level 31 U/L (25-115) Lipase 116 U/L (73-393) Rapid Plasma Reagin Pending Hemanth-Ruiz Virus Capsid Ag IgG Ab Pending Hemanth-Ruiz Virus Capsid Ag IgM Ab Pending EBV Early Ag Ab (Restrict +Diffuse) Pending Hemanth-Ruiz Virus Nuclear Ag Ab Pending Hepatitis A IgM Antibody Pending Hepatitis B Surface Antigen Pending Hepatitis B Core IgM Antibody Pending Hepatitis C Antibody Pending HIV-1 RNA (PCR) log10 Value Pending HIV-1 RNA Ultraquantitative (PCR) Pending HIV (1&2) Antibody Rapid Negative (NEGATIVE) Varicella-Zoster IgM Antibody Pending Plan Problems: (1) Periodontal abscess Assessment & Plan: small <1cm abx as per Id outpatient dental f/u Bones/joints: Visualized calvarium is unremarkable. Zygomatic arches are unremarkable. No acute fracture. Soft tissues: There is soft tissue swelling and haziness anterior to the left submandibular gland presumably related to are dental etiology. Orbits: Unremarkable. Submandibular/parotid glands: Parotid glands are unremarkable. Submandible glands are unremarkable. Sinuses: Mild to moderate chronic left maxillary sinusitis. Dental: Best seen on axial series 6 image 25 coronal image 18, there is suggestion of a 0.7 x 0.5 x 0.9 cm probable periodontal abscess collection. IMPRESSION: There is significant soft tissue swelling and stranding within the 17 is tissues at the left submandibular region. Moreover, within the deep soft tissues adjacent to the teeth, there is suggestion of a probable periodontal abscess collection involving one of the molars. (2) Elevated LFTs Assessment & Plan: likely from Etoh abuse discussed cessation patient understands discussed medication use and adverse effects okay for diet trend labs improving almost normal no etoh d/c outpt follow up with pcp (3) Hematoma of rectus sheath Assessment & Plan: denies trauma on exam not palpable given size will monitor trend h/h clinically stable monitor h/h Liver: Diffuse fatty infiltration of the liver is noted. The liver and the spleen enhance uniformly. Gallbladder and bile ducts: See below. Pancreas: See below. Spleen: See above. Adrenals: The adrenal glands, the head, body, tail of the pancreas, and the gallbladder are unremarkable. Kidneys and ureters: Both kidneys are shown to excrete contrast bilaterally. 0.5 cm probable simple cyst midpole region of the left kidney. No follow-up is advised. No hydronephrosis. Stomach and bowel: Moderate quantity of stool. No evidence of bowel obstruction. No mucosal thickening. PELVIS: Appendix: The appendix is seen on axial image 64 and is unremarkable. Bladder: Bladder is underdistended appeared Reproductive: Mildly distended endometrial cavity which is fluid- filled. ABDOMEN and PELVIS: Intraperitoneal space: Unremarkable. No free air. No significant fluid collection. Bones/joints: Mild osteoarthritic changes about the sacroiliac joints. Alignment of the thoracolumbar spine is unremarkable. The sacrum and coccyx are unremarkable. No acute fracture. Soft tissues: Ischiorectal fat is clean. Best seen on series 4 image 65 within the anterior aspect of the lower right rectus abdominous muscle at the midline there is a 0.6 and your hypodensity, possibly focal area of acute hemorrhage Vasculature: Flow is demonstrated within the celiac, SMA, the renal arteries, and KALEN. No abdominal aortic aneurysm. Lymph nodes: No retroperitoneal lymphadenopathy. Other findings: A 1.7 cm Alexus's duct cyst left pudendal region. A 0.6 cm Alexus's duct cyst right pudendal region. IMPRESSION: 1. Small hiatal hernia. 2. Probable distal esophagitis. 3. Fatty infiltration of the liver. 4. Gallbladder is unremarkable. 5. No renal calculus or hydronephrosis. 6. The appendix is unremarkable. 7. Moderate quantity of stool without bowel obstruction. 8. 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 9. Possible focal area of acute hemorrhage within the medial aspect of the right rectus abdominis muscle best seen on series 4 image 65. Alfonzo Mclaughlin Apr 26, 2020 15:33
[2020-04-26 16:00] VITALS: BP 110/68
[2020-04-26] MEDS ORDERED: AUGMENTIN 875-1 EAC1 ORAL (17:11)
--- NOTE | 2020-04-26 22:50 | Psych Consult Progress Note ---
Psychiatry Progress Note Psychiatry Progress Note Allergies: Coded Allergies: MORPHINE (Verified Allergy, Unknown, 04/23/20) Objective Data Height (Feet): 5 Height (Inches): 8.00 Weight (Pounds): 254 General Appearance: alert Ramses Martinez MD Apr 26, 2020 22:50
--- NOTE | 2020-04-27 01:15 | Consultation ---
DATE OF CONSULTATION: 04/26/2020 CONSULTING PHYSICIAN: Ramses Martinez MD. HISTORY OF PRESENT ILLNESS: This is a 30-year-old female with a history of opiate dependence as well as anxiety disorder, depression who has been admitted to the hospital for medical stabilization. Her toxicology is positive for benzo, cocaine, and marijuana. Patient is reluctant to take any SSRIs and likes to take marijuana and benzodiazepines. PAST PSYCHIATRIC HISTORY: Anxiety and depression. PAST MEDICAL HISTORY: Significant for and asthma. ALLERGIES: Morphine. SUBSTANCE ABUSE HISTORY: Positive for alcohol, marijuana, and Coke. MENTAL STATUS EXAMINATION: Alert, oriented times self, place, situation, and date. Mood is anxious. Affect is constricted, congruent with mood. Thought process is concrete. Thought content, no suicidal or homicidal ideation. Cognition is intact. Insight and judgment is fair. ASSESSMENT: [place] I Anxiety disorder. polysubstance dependence. [place] II Deferred. [place] III As above. [place] IV Low. [place] V 20. PLAN: 1. We will start the patient on SSRIs. 2. Patient is reluctant. 3. Start the patient on benzodiazepine. 4. Provide the patient with reality orientation and supportive therapy. Ramses Martinez M.D. DR: ARMANDO JOB#: [id number] CC:
--- NOTE | 2020-04-29 10:43 | Discharge Summary ---
Discharge Summary Discharge Summary _ DATE OF ADMISSION: 04/23/2020 DATE OF DISCHARGE: 04/26/2020 DISCHARGED BY: Dr Partida REASON FOR ADMISSION: 30 years old female with past medical history of asthma, presented with complaint of 2 days of left-sided facial pain and swelling. Patient stated that she did not see dentist since she was afraid of dental work. Patient took Advil with no improvement. Patient was able to open mouth, but with limited range of motion. She reported tightness in the left side of the face along with swelling. No ear pain. No fever or chills. No sore throat. She was able to speak in full sentences and swallow. No chest pain or shortness of breath. No headache or dizziness. No facial trauma. Patient also reported intermittent sharp right upper quadrant abdominal pain. Patient reported drinking alcohol on a daily basis. No diarrhea Upon evaluation vital signs were stable. Laboratory work-up revealed no leukocytosis, stable hemoglobin, hematocrit. AST 2499, ALT 2265, alkaline phosphatase 98, lipase 69. Stable electrolytes and renal parameters. Urinalysis revealed moderate bacteria and pyuria. Urine test was negative. Urine toxicology screen was positive for cocaine, marijuana and benzodiazepine. In the ER patient received empiric antibiotic , anxiolytic, analgesic and steroid. CT scan of the facial bones revealed significant soft tissue swelling and stranding at the left submandibular region, suggesting a probable periodontal abscess collection involving one of the molars. CT scan of the abdomen and pelvis demonstrated fatty infiltration of the liver, unremarkable gallbladder, probable distal esophagitis, small hiatal hernia, unremarkable appendix. Moderate quantity of stool without bowel obstruction. Possible focal area of acute hemorrhage within the medial aspect of the right rectus abdominis. CONSULTANTS: ID specialist Dr. Pinto GI specialist Dr. Louise surgery Dr. Torres psychiatrist pain specialist Dr. Bailon [facility] COURSE: Patient admitted to medical surgical floor and started on empiric antibiotic for left facial cellulitis. Left facial cellulitis was likely due to was due to probable periodontal abscess. Urine culture revealed mixed urogenital contaminants. Patient received fluconazole x1 for Sharda vaginitis Hepatitis panel was negative. HIV test was nonreactive. Centre screen was negative. GC/ CT negative. RPR nonreactive. VZV negative. Elevated EBV capcid antigen IgG antibody > 600 and EBV nuclear antigen antibody 67.8, suggesting a prior EBV infection. Patient was discharged on oral Augmentin to complete the course. Patient remained afebrile, no leukocytosis LFT closely monitored, trending down. Prior to discharge AST 104 , ALT 669. As mentioned above hepatitis panel was negative , HIV test was nonreactive. Elevated LFT were most likely due to drug/toxin abuse. Surgeon followed for hematoma of rectus sheath. Patient remained clinically stable . Hemoglobin and hematocrit were closely monitored and remained stable ; prior to discharge hemoglobin 11, hematocrit 33.9. Pain management was addressed as per pain specialist recommendation. Psychiatrist seen and evaluated patient. Plan was to start patient on SSRI , but patient was reluctant to do it. Subsequently patient was started on benzodiazepine. Patient was provided with reality orientation and supportive therapy . Patient was counseled on abstinence from illicit street drugs. Patient clinically stabilized and was ready for discharge FINAL DIAGNOSES: Left facial cellulitis due to probable periodontal abscess Acute elevation in LFT likely toxic /drug, ETOH related Sharda vaginitis, s/p treatment Hematoma of rectus sheath Anxiety disorder Polysubstance dependence Cocaine abuse Lumbar DDD Lumbar spondylosis Lumbar radiculopathy DISCHARGE MEDICATIONS: See Medication Reconciliation list. DISCHARGE INSTRUCTIONS: Patient was discharged home. Patient to follow-up with a dentist after completion of antibiotic. Follow-up with a primary care provider in 1 week. I have been assigned to dictate discharge summary for this account. I was not involved in the patient's management. Radha Tesfaye NP Apr 29, 2020 10:43
== END 2020-04-26 17:57 | disposition home or self-care (01) | DRG 383 ==
LOC: EMR 15:15 → 3E 17:09 → EDBEDREQ 20:21 → 3E 20:57
DX: L03.211 Cellulitis of face (principal); K04.7 Periapical abscess without sinus; N39.0 Urinary tract infection, site not specified; Z88.6 Allergy status to analgesic agent; M51.16 Intervertebral disc disorders with radiculopathy, lumbar region; M47.896 Other spondylosis, lumbar region; M62.89 Other specified disorders of muscle; B37.3 Candidiasis of vulva and vagina; R79.89 Other specified abnormal findings of blood chemistry
CPT/HCPCS: 36415; 70488; 74177; 80048; 80053; 80307; 81003; 81025; 82150; 82248; 83690; 85007; 85025; 85610; 85730; 86308; 86592; 86663; 86664; 86665; 86695; 86703; 86704; 86705; 86709; 86787; 86803; 86850; 86900; 86901; 87086; 87340; 87491; 87536; 87590; 96365; 96375; 99285; G0480; J2405; J7030; S0077